=== PATIENT | male | born 1945 | race Caucasian/White ===

== ENCOUNTER 2016-11-19 08:35 | Outpatient (CLI) | payer MEDICARE, OTHER ==
[~2016-11-19] VITALS: Ht 177.8 cm; Wt 97.1 kg
[~2016-11-19 08:35] MED LIST: PANT20TA2 PO
--- OUTSIDE RECORDS SUMMARY | 2016-11-19 08:38 | XMS REPORT | Continuity of Care Document ---
Author Author [facility] Organization [facility] Address Unknown Phone Unavailable Allergies Active Description Code Type Severity Reaction Onset Reported/Identified Relationship to Patient Clinical Status Yes No Known Drug Allergies [id number] Drug Allergy Unknown N/ A 09/30/2014 Medications Problems Date Dx Coded Attending Type Code Diagnosis Diagnosed By 10/18/2014 DEBBIE GATES MD Ot 789.01 10/25/2014 DEBBIE GATES MD Ot 455.0 INT HEMORRHOID W/O COMPL 10/25/2014 DEBBIE GATES MD Ot 455.3 EXT HEMORRHOID W/O COMPL 10/25/2014 DEBBIE GATES MD Ot 530.11 REFLUX ESOPHAGITIS 10/25/2014 DEBBIE GATES MD Ot 535.50 UNSP GASTRITIS GASTRODUODENITIS W/O ME 10/25/2014 DEBBIE GATES MD Ot 553.3 DIAPHRAGMATIC HERNIA 10/25/2014 DEBBIE GATES MD Ot 562.10 DIVERTICULOSIS COLON (W/O MENT OF HEMORR 10/30/2014 DEBBIE GATES MD Ot 593.9 10/31/2014 DEBBIE GATES MD Ot 789.01 11/01/2014 DEBBIE GATES MD Ot 593.9 11/11/2014 DEBBIE GATES MD Ot 789.01 11/13/2014 DEBBIE GATES MD Ot 593.9 01/22/2015 DEBBIE GATES MD Ot V72.84 10/21/2016 DEBBIE GATES MD Ot 789.01 ABDOMINAL PAIN, RIGHT UPPER QUADRANT 10/21/2016 DEBBIE GATES MD Ot 789.01 ABDOMINAL PAIN, RIGHT UPPER QUADRANT 10/21/2016 DEBBIE GATES MD Ot 593.9 RENAL URETERAL DIS NOS 10/21/2016 DEBBIE GATES MD, Ot V72.84 EXAM PRE-OPERATIVE NOS 10/21/2016 DEBBIE GATES MD Ot 789.01 ABDOMINAL PAIN, RIGHT UPPER QUADRANT 10/21/2016 DEBBIE GATES MD Ot 789.01 ABDOMINAL PAIN, RIGHT UPPER QUADRANT 10/21/2016 DEBBIE GATES MD Ot 593.9 RENAL URETERAL DIS NOS 10/21/2016 DEBBIE GATES MD Ot V72.84 EXAM PRE-OPERATIVE NOS 10/21/2016 DEBBIE GATES MD Ot 789.01 ABDOMINAL PAIN, RIGHT UPPER QUADRANT 10/21/2016 DEBBIE GATES MD Ot 789.01 ABDOMINAL PAIN, RIGHT UPPER QUADRANT 10/21/2016 DEBBIE GATES MD Ot 593.9 RENAL URETERAL DIS NOS 10/21/2016 DEBBIE GATES MD Ot V72.84 EXAM PRE-OPERATIVE NOS Procedures Results Encounters ACCT No. Visit Date/Time Discharge Status Pt. Type Provider Facility Loc./Unit Complaint [id number] 10/25/2014 09:18:00 2014 13:00:00 DIS Outpatient DEBBIE GATES MD [facility] SDC ABDOMINAL PAIN [id number] 10/24/2014 15:30:00 2014 23:59:59 CLS Outpatient DEBBIE GATES MD [facility] PREOP ABDOMINAL PAIN [id number] 10/21/2014 10:15:00 2014 23:59:59 CLS Outpatient DEBBIE GATES MD [facility] RAD LEFT KIDNEY LESION [id number] 10/17/2014 08:56:00 2014 23:59:59 CLS Outpatient DEBBIE GATES MD [facility] RAD RUQ PAIN [id number] 09/30/2014 12:48:00 2013 23:59:59 CLS Outpatient DEBBIE GATES MD [facility] CARD RUQ PAIN
[2016-11-19 08:42] VITALS: BP 141/83
[2016-11-19] MEDS ORDERED: SITA1TAB2 PO (09:42)
[2016-11-19] MEDS ORDERED: INSU100I10 SQ (09:42)
[2016-11-19] MEDS ORDERED: ATEN50TA PO (09:42)
[2016-11-19] MEDS ORDERED: ASPI-586 PO (09:42)
[2016-11-19] MEDS ORDERED: ROSU5TAB PO (09:42)
[2016-11-19] MEDS ORDERED: METF500T4 PO (09:42)
[2016-11-19 09:43] LABS: BASOPHILS # (AUTO) 0.1 10^3/uL (0.0-0.1); BASOPHILS % (AUTO) 1 % (0-10); EOSINOPHILS # (AUTO) 0.3 10^3/uL (0.0-0.3); EOSINOPHILS % (AUTO) 3 % (0-10); LYMPHOCYTES # (AUTO) 1.4 X 10^3 (1.0-4.0); LYMPHOCYTES % (AUTO) 15 % (12-44); MEAN CORPUSCULAR HEMOGLOBIN 28 PG (25-34); MEAN CORPUSCULAR HGB CONC 33 G/DL (32-36); MEAN CORPUSCULAR VOLUME 86 FL (80-99); MONOCYTES # (AUTO) 0.9 X 10^3 (0.0-1.0); MONOCYTES % (AUTO) 9 % (0-12); NEUTROPHILS # (AUTO) 6.9 X 10^3 (1.8-7.8); NEUTROPHILS % (AUTO) 73 % (42-75); PLATELET COUNT 245 10^3/uL (130-400); RED BLOOD COUNT 5.21 10^6/uL (4.35-5.85); RED CELL DISTRIBUTION WIDTH 13.6 % (10.0-14.5); WHITE BLOOD COUNT 9.5 10^3/uL (4.3-11.0)
[2016-11-19 09:54] LABS: KETONES,URINE NEGATIVE (NEGATIVE); LEUKOCYTE ESTERASE ,URINE 3+ (NEGATIVE); NITRITE,URINE NEGATIVE (NEGATIVE); PH,URINE 5 (5-9); PROTEIN,URINE 1+ (NEGATIVE); UROBILINOGEN,URINE 1 MG/DL (NORMAL)
[2016-11-19 09:54] LABS: INR 0.9 (0.8-1.4); PROTHROMBIN TIME PATIENT 11.9 SEC (12.2-14.7)
[2016-11-19 10:02] LABS: ALANINE AMINOTRANSFERASE 20 U/L (0-55); ALBUMIN 4.2 G/DL (3.2-4.5); ANION GAP 13 MMOL/L (5-14); ASPARTATE AMINO TRANSFERASE 20 U/L (5-34); BILIRUBIN,TOTAL 0.3 MG/DL (0.1-1.0); BLOOD UREA NITROGEN 17 MG/DL (7-18); BUN/CREATININE RATIO 15; CALCIUM 9.4 MG/DL (8.5-10.1); CARBON DIOXIDE 22 MMOL/L (21-32); CHLORIDE 102 MMOL/L (98-107); CREATININE SERUM 1.12 MG/DL (0.60-1.30); GFR ESTIMATED > 60; GLUCOSE 161 MG/DL (70-105); POTASSIUM 4.7 MMOL/L (3.6-5.0); SODIUM 137 MMOL/L (135-145); TOTAL PROTEIN 6.7 G/DL (6.4-8.2)
[2016-11-19 10:09] LABS: BILIRUBIN,URINE 1+ (NEGATIVE); SQUAMOUS EPITHELIAL CELL,UR 0-2 /HPF
[2016-11-19 10:42] LABS: ERYTHROCYTE SEDIMENTATION RATE 4 MM/HR (0-30)
[2016-12-04] MEDS ORDERED: OXYC-197 PO (07:45)
== END 2016-11-19 09:25 | disposition home or self-care (01) ==
LOC: PREOP 08:35
PROVIDERS: ATTEND Orthopaedic Surgery
DX: Z01.812 Encounter for preprocedural laboratory examination (principal); Z11.2 Encounter for screening for other bacterial diseases; M17.12 Unilateral primary osteoarthritis, left knee; R53.83 Other fatigue; R82.99 Other abnormal findings in urine
CPT/HCPCS: 36415; 80053; 81000; 85025; 85610; 85652; 86850; 86900; 86901; 87081; 87088

== ENCOUNTER 2016-12-01 06:04 | Inpatient (IN) | payer MEDICARE, OTHER ==
--- NOTE | 2016-11-22 12:32 | HISTORY AND PHYSICAL ---
This will be for inpatient admission for left total knee arthroplasty. HISTORY: The patient is a 71-year-old with complaints of worsening left knee pain. Radiographs reveal complete loss of medial and patellofemoral joint spaces. He reports functional impairment because of the knee. He has tried bracing, Synvisc and anti-inflammatories without relief and due to functional impairment and failure to improve with conservative measures, the patient elected to proceed with surgical intervention. REVIEW OF SYSTEMS: No chest pain, no shortness of breath. No dysuria. PAST MEDICAL HISTORY: Diabetes type 2, PAST SURGICAL HISTORY: 1. Bilateral carpal tunnel. 2. Knee arthroscopy. FAMILY HISTORY: Significant for Alzheimer's. PRIMARY CARE PROVIDER: Dr. Butt. MEDICATIONS: 1. glimepiride 2. Lantus 3. Janumet 4. Ramipril 5. metformin 6. atenolol 7. Crestor 8. aspirin ALLERGIES: No known drug allergies. SOCIAL HISTORY: The patient denies alcohol and tobacco use PHYSICAL EXAMINATION: The patient's is well-developed, well-nourished, in no acute distress. HEENT: Normocephalic, atraumatic. Pupils are equal, round, and reactive to light. OROPHARYNX: Clear. NECK: Supple with no lymphadenopathy. LUNGS: Clear to auscultation bilaterally. HEART: Regular rate and rhythm. ABDOMEN: Soft, nontender, nondistended. EXTREMITY EXAM: The left knee demonstrates mild effusion. He ambulates with an antalgic gait. He has varus alignment noted. Range of motion 0/4/120. There is no varus valgus laxity. There is no erythema or warmth. IMPRESSION: Severe left knee osteoarthritis, unresponsive to conservative measures. PLAN: Left total knee arthroplasty. The risks, benefits, options, ramifications and recovery were discussed at length with the patient. He understands and wishes to proceed. Job ID: [id number] Dictated Date: 11/22/2016 12:15:53 Director Of Perioperative Services Date: 11/22/2016 12:26:58/sharri
[~2016-12-01] VITALS: Ht 177.8 cm; Wt 97.1 kg
[~2016-12-01 06:04] MED LIST changes: +ASPI-586 PO; +ATEN50TA PO; +INSU100I10 SQ; +METF500T4 PO; +ROSU5TAB PO; +SITA1TAB2 PO
--- OUTSIDE RECORDS SUMMARY | 2016-12-01 06:09 | XMS REPORT | Continuity of Care Document ---
Author Author [facility] Organization [facility] Address Unknown Phone Unavailable Care Team Providers Care Chief Deputy Clerk/Bailiff Name Role Phone DORCAS CARTY MD PCP Insurance Providers Payer Name Policy Number Subscriber Name Relationship [employer] [id number] Cb Stanley 18 Self / Same As Patient Enter Insurance Name [id number] Cb Stanley 18 Self / Same As Patient Advance Directives Directive Response Recorded Date/Time Advance Directives Yes 11/19/16 8:43am Health Care Power of Screen Printer Yes 11/19/16 8:43am Organ Donor No 11/19/16 8:43am Resuscitation Status Full Code 11/19/16 8:43am Problems No problem information available. Medications Current Home Medications Medication Dose Units Route Directions Days/Qty Instructions Start Date Insulin Glargine,Hum.rec.anlog 100 Unit/1 Ml 50 Unit Sub-Q Bedtime 11/19/16 Sitagliptin Phos/Metformin Hcl 1 Tab 1 Tab Oral Twice A Day 11/19/16 Metformin Hcl 500 Mg 500 Mg Oral Three Times A Day 11/19/16 Atenolol 50 Mg 75 Mg Oral Daily take 1 1/2 of 50mg tab for 75mg total 11/19/16 Rosuvastatin Calcium 5 Mg 5 Mg Oral Bedtime 11/19/16 Aspirin 81 Mg 81 Mg Oral Daily 11/19/16 Past Home Medications Medication Directions Ordered Status Pantoprazole Sodium 20 Mg Tablet.dr, 40 Mg Oral Daily 10/25/14 Discontinued Social History Social History Problem Response Recorded Date/Time Alcohol Use Denies Use 11/19/2016 8:43am Recreational Drug Use No 11/19/2016 8:43am Recent Foreign Travel No 11/19/2016 8:39am Recent Infectious Disease Exposure No 11/19/2016 8:39am Smoking Status Never a Smoker 11/19/2016 8:42am Recent Hopitalizations No 11/19/2016 8:43am Query Response Start Date Stop Date Smoking Status Never a Smoker Hospital Discharge Instructions No hospital discharge instructions. Plan of Care Discharge Date 11/19/16 9:25am Prescriptions See Medication Section Functional Status No functional status results. Allergies, Adverse Reactions, Alerts No known allergies. Immunizations No immunization records. Vital Signs Acute Vital Signs Vital Response Date/Time Pulse Rate (adult) 105 bpm (60 - 90) 11/19/2016 8:42am O2 Sat by Pulse Oximetry 98 % (88 - 100) 11/19/2016 8:42am Blood Pressure 141/83 mm Hg 11/19/2016 8:42am Blood Pressure Mean 102 mm Hg 11/19/2016 8:42am Pain Numeric Pain Scale 8 11/19/2016 8:42am Height (Feet) 5 feet 11/19/2016 8:40am Height (Inches) 10.00 inches 11/19/2016 8:40am Height (Calculated Centimeters) 177.003802 cm 11/19/2016 8:40am Weight (Pounds) 214 pounds 11/19/2016 8:40am Weight (Ounces) 0.0 oz 11/19/2016 8:40am Weight (Calculated Grams) 27080.77 gm 11/19/2016 8:40am Weight (Calculated Kilograms) 97.686316 kilograms 11/19/2016 8:40am Calculated BMI 30.7 11/19/2016 8:40am Results Laboratory Results Test Name Result Units Flags Reference Collection Date/Time Result Date/ Time Comments White Blood Count 9.5 10^3/uL 4.3-11.0 11/19/2016 9:10am 11/19/2016 9: 48am Red Blood Count 5.21 10^6/uL 4.35-5.85 11/19/2016 9:10am 11/19/2016 9: 48am Hemoglobin 14.8 G/DL 13.3-17.7 11/19/2016 9:11/19/2016 9:48am Hematocrit 45 % 40-54 11/19/2016 9:11/19/2016 9:48am Mean Corpuscular Volume 86 FL 80-99 11/19/2016 9:11/19/2016 9: 48am Mean Corpuscular Hemoglobin 28 PG 25-34 11/19/2016 9:11/19/2016 9: 48am Mean Corpuscular Hemoglobin Concent 33 G/DL 32-36 11/19/2016 9: 9:48am Red Cell Distribution Width 13.6 % 10.0-14.5 11/19/2016 9:2016 9:48am Platelet Count 245 10^3/uL 130-400 11/19/2016 9:11/19/2016 9:48am Mean Platelet Volume 11.0 FL H 7.4-10.4 11/19/2016 9:11/19/2016 9: 48am Neutrophils (%) (Auto) 73 % 42-75 11/19/2016 9:11/19/2016 9:48am Lymphocytes (%) (Auto) 15 % 12-44 11/19/2016 9:11/19/2016 9:48am Monocytes (%) (Auto) 9 % 0-12 11/19/2016 9:11/19/2016 9:48am Eosinophils (%) (Auto) 3 % 0-10 11/19/2016 9:11/19/2016 9:48am Basophils (%) (Auto) 1 % 0-10 11/19/2016 9:11/19/2016 9:48am Neutrophils # (Auto) 6.9 X 10^3 1.8-7.8 11/19/2016 9:11/19/2016 9: 48am Lymphocytes # (Auto) 1.4 X 10^3 1.0-4.0 11/19/2016 9:11/19/2016 9: 48am Monocytes # (Auto) 0.9 X 10^3 0.0-1.0 11/19/2016 9:11/19/2016 9: 48am Eosinophils # (Auto) 0.3 10^3/uL 0.0-0.3 11/19/2016 9:10am 11/19/2016 9 :48am Basophils # (Auto) 0.1 10^3/uL 0.0-0.1 11/19/2016 9:10am 11/19/2016 9: 48am Erythrocyte Sedimentation Rate 4 MM/HR 0-30 11/19/2016 9:10am 2016 10:42am Prothrombin Time 11.9 SEC L 12.2-14.7 11/19/2016 9:10am 11/19/2016 9: 55am INR Comment 0.9 0.8-1.4 11/19/2016 9:10am 11/19/2016 9:55am INTERPRETIVE DATA SUGGESTED THERAPEUTIC RANGE FOR INR'S: VENOUS THROMBOSIS, PULMONARY EMBOLISM, OR PREVENTION OF SYSTEMIC EMBOLISM (EG. IN ATRIAL FIBRILLATION): 2.0 - 3.0 MECHANICAL PROSTHETIC HEART VALVES: 2.5 - 3.5* *NOTE: INR'S UP TO 4.5 MAY BE NECESSARY IN SELECTED GROUPS OF HIGH RISK PATIENTS. [employer] CONSENSUS CONFERENCE ON ANTITHROMBOTIC THERAPY (2000). Urine Color YELLOW 11/19/2016 9:1511/19/2016 10:10am Urine Clarity CLEAR 11/19/2016 9:1511/19/2016 10:10am Urine pH 5 5-9 11/19/2016 9:1511/19/2016 10:10am Urine Specific [place] 1.020 1.016-1.022 11/19/2016 9:152016 10:10am Urine Protein 1+ * NEGATIVE 11/19/2016 9:1511/19/2016 10:10am Urine Glucose (UA) NEGATIVE NEGATIVE 11/19/2016 9:1511/19/2016 10: 10am Urine RBC (Auto) NEGATIVE NEGATIVE 11/19/2016 9:1511/19/2016 10: 10am Urine Ketones NEGATIVE NEGATIVE 11/19/2016 9:1511/19/2016 10:10am Urine Nitrite NEGATIVE NEGATIVE 11/19/2016 9:1511/19/2016 10:10am Urine Bilirubin 1+ * NEGATIVE 11/19/2016 9:1511/19/2016 10:10am CONFIRMATORY ICTOTEST NEGATIVE Urine Urobilinogen 1 MG/DL NORMAL 11/19/2016 9:1511/19/2016 10:10am Urine Leukocyte Esterase 3+ * NEGATIVE 11/19/2016 9:15am 11/19/2016 10: 10am Urine RBC NONE /HPF 11/19/2016 9:15am 11/19/2016 10:10am Urine WBC 5-10 /HPF * 11/19/2016 9:15am 11/19/2016 10:10am Urine Bacteria FEW /HPF * 11/19/2016 9:15am 11/19/2016 10:10am Urine Squamous Epithelial Cells 0-2 /HPF 11/19/2016 9:15am 2016 10:10am Urine Crystals NONE /LPF 11/19/2016 9:15am 11/19/2016 10:10am Urine Casts PRESENT /LPF 11/19/2016 9:15am 11/19/2016 10:10am Urine Hyaline Casts 10-25 /LPF * 11/19/2016 9:15am 11/19/2016 10:10am Urine Mucus SMALL /LPF * 11/19/2016 9:15am 11/19/2016 10:10am Urine Culture Indicated YES 11/19/2016 9:15am 11/19/2016 10:10am Sodium Level 137 MMOL/L 135-145 11/19/2016 9:10am 11/19/2016 10:04am Potassium Level 4.7 MMOL/L 3.6-5.0 11/19/2016 9:10am 11/19/2016 10: 04am Chloride Level 102 MMOL/L 98-107 11/19/2016 9:10am 11/19/2016 10:04am Carbon Dioxide Level 22 MMOL/L 21-32 11/19/2016 9:10am 11/19/2016 10: 04am Anion Gap 13 MMOL/L 5-14 11/19/2016 9:10am 11/19/2016 10:04am Blood Urea Nitrogen 17 MG/DL 7-18 11/19/2016 9:10am 11/19/2016 10:04am Creatinine 1.12 MG/DL 0.60-1.30 11/19/2016 9:10am 11/19/2016 10:04am BUN/Creatinine Ratio 15 11/19/2016 9:10am 11/19/2016 10:04am Estimat Glomerular Filtration Rate > 60 11/19/2016 9:10am 2016 10:04am GFR INTERPRETIVE DATA UNITS FOR ESTIMATED GFR (eGFR): mL/min/1.73 M2 REFERENCE RANGE FOR ESTIMATED GFR (eGFR) eGFR NORMAL eGFR >60 MODERATELY DECREASED eGFR 30-59 SEVERLY DECREASED eGFR 15-29 KIDNEY FAILURE <15 (OR DIALYSIS) Glucose Level 161 MG/DL H 70-105 11/19/2016 9:10a11/19/2016 10:04am Calcium Level 9.4 MG/DL 8.5-10.1 11/19/2016 9:10a11/19/2016 10:04am Total Bilirubin 0.3 MG/DL 0.1-1.0 11/19/2016 9:10a11/19/2016 10:04am Alkaline Phosphatase 56 U/L 40-136 11/19/2016 9:10a11/19/2016 10: 04am Aspartate Amino Transf (AST/SGOT) 20 U/L 5-34 11/19/2016 9:10a2016 10:04am Alanine Aminotransferase (ALT/SGPT) 20 U/L 0-55 11/19/2016 9:10a11/19 10:04am Total Protein 6.7 G/DL 6.4-8.2 11/19/2016 9:10a11/19/2016 10:04am Albumin 4.2 G/DL 3.2-4.5 11/19/2016 9:10a11/19/2016 10:04am Procedures No known history of procedures. Encounters Encounter Location Arrival/Admit Date Discharge/Depart Date Attending Provider Departed Clinic [facility] 11/19/16 8:35am 11/19/16 9: 25am ONEIDA CASEY MD
[2016-12-01] MEDS: LACTATED RINGERS 1,000 ML IV PRN ×2 (06:30→07:10)
[2016-12-01] MEDS ORDERED: CEFUROXIME 1.5 GM (ZINACEF) VIAL ONE (06:38)
[2016-12-01] MEDS ORDERED: NS (IVPB) 50 ML ONE (06:38)
[2016-12-01 06:52] LABS: RED BLOOD COUNT 5.37 10^6/uL (4.35-5.85); RED CELL DISTRIBUTION WIDTH 13.6 % (10.0-14.5); WHITE BLOOD COUNT 10.9 10^3/uL (4.3-11.0)
[2016-12-01] MEDS ORDERED: PROPOFOL INJECTION 50 ML IV ONE (06:58)
[2016-12-01] MEDS ORDERED: morphine PF (DURAMORPH) 10 MG/10 ML AMP ONE (06:58)
[2016-12-01 07:01] VITALS: BP 142/89
[2016-12-01] MEDS ORDERED: CEFUROXIME 1.5 GM/NS 50 ML IVPB IV ONE ×2 (07:15)
--- NOTE | 2016-12-01 07:19 | Progress Note-Pre Operative ---
Pre-Operative Progress Note H&P Reviewed The H&P was reviewed, patient examined and no changes noted. Date H&P Reviewed: Dec 01, 2016 Time H&P Reviewed: 07:11 Pre-Operative Diagnosis: left knee primary osteoarthritis ONEIDA CASEY MD Dec 01, 2016 07:19
--- NOTE | 2016-12-01 07:20 | Progress Note-Post Operative ---
Post-Operative Progess Note Product Manufacturing Professional Miguel Angel Small Pre-Operative Diagnosis left knee primary osteoarthritis Post-Operative Diagnosis left knee primary osteoarthritis Post-Op Procedure Note Date of Procedure: Dec 01, 2016 Name of Procedure: left total knee arthroplasty Anesthesia Type spinal Estimated blood loss (mL): minimal Packing: none Specimen(s) collected none ONEIDA CASEY MD Dec 01, 2016 07:20
[2016-12-01] MEDS ORDERED: ACETAMINOPHEN 325 MG TABLET/CAPLET (TYLENOL) PO PRN (07:30)
[2016-12-01] MEDS ORDERED: ONDANSETRON 4 MG/2 ML (SDV) Z0FRAN IVP PRN (07:30)
[2016-12-01] MEDS ORDERED: morphine PCA 30 MG/30 ML VIAL IV PRN (07:30)
[2016-12-01] MEDS ORDERED: INTRA-ARTICULAR INJ ONE ×5 (07:30)
[2016-12-01] MEDS ORDERED: diphenhydrAMINE 50 MG/ML INJ (BENADRYL) IVP PRN (07:30)
[2016-12-01] MEDS ORDERED: morphine INJ 10 MG/ML 1ML (SYR OR VIAL) ONE (08:59)
[2016-12-01] MEDS ORDERED: SENNA W/DOCUSATE (SENOKOT S) TABLET PO SCH (09:00)
[2016-12-01] MEDS ORDERED: proPOfol 200 MG/20 ML (DIPRIVAN) VIAL IV ONE (09:22)
[2016-12-01] MEDS ORDERED: LACTATED RINGERS 3,000 ML IV ONE (09:23)
[2016-12-01] MEDS ORDERED: ONDANSETRON 4 MG/2 ML (SDV) Z0FRAN IV PRN ×2 (09:45)
[2016-12-01] MEDS ORDERED: morphine INJ 10 MG/ML 1ML (SYR OR VIAL) IV PRN (09:45)
[2016-12-01] MEDS ORDERED: NALOXONE 0.4 MG/ML 1 ML (NARCAN) VIAL IV PRN (09:45)
[2016-12-01] MEDS ORDERED: morphine PF (DURAMORPH) 10 MG/10 ML AMP INJ ONE (09:45)
--- NOTE | 2016-12-01 10:04 | Diagnostic Imaging Report ---
2 views of the left knee. Indication: post total knee arthroplasty Findings: There is femoral and tibial prosthesis with patellar resurfacing and prosthesis seen. Anterior soft tissue post-operative changes are noted with anterior skin rene seen. Impression: Baseline post left total knee arthroplasty in good alignment. Dictated by: Dictated on workstation # [id number]
--- NOTE | 2016-12-01 10:35 | Progress Note-Standard ---
Standard Progress Note Progress Notes/Assess & Plan Progress/Assessment & Plan No complaints Radiographs--Hw well positioned. No fractures LLE--2plus DP pulse with brisk cap refill spinal in effect s/p L TKA mobilize as able ONEIDA CASEY MD Dec 01, 2016 10:35
[2016-12-01] MEDS: NS IV 1000 ML 1,000 ML IV SCH ×2 (11:06→15:09)
[2016-12-01 12:00] VITALS: BP 151/91
--- NOTE | 2016-12-01 12:41 | OPERATIVE REPORT ---
PROCEDURE PHYSICIAN: ONEIDA CASEY DATE OF PROCEDURE: 12/01/2016 PREOPERATIVE DIAGNOSIS: Left knee primary osteoarthritis. POSTOPERATIVE DIAGNOSIS: Left knee primary osteoarthritis. PROCEDURE: Left total knee arthroplasty. SURGEON: Digna EVENT PLANNER: Miguel Angel Small who assisted throughout the procedure and closed the incision. ANESTHESIA: General endotracheal by riley Quarles CRNA. TOURNIQUET TIME: Approximately 70 minutes at 300 mmHg. ESTIMATED BLOOD LOSS: Minimal. DRAINS: None. COMPLICATIONS: None. MATERIALS: Microport cemented size 5 femur, cemented size 5 tibia with 10 mm insert and a cemented size 32 patella button. The patient was then transported to the recovery room, awake, in stable condition. POSTOPERATIVE PLAN: Routine protocol. STATEMENT OF MEDICAL NECESSITY: The patient is a 71-year-old gentleman with progressively worsening left knee pain. Radiographs revealed severe tricompartmental osteoarthritis. He had undergone treatment with multiple injections, but reported progressive functional impairment and due to worsening symptoms and failure to improve with conservative measures, the patient elected to proceed with surgical intervention. PROCEDURE: After risks and benefits of procedure were discussed and questions were answered an informed consent was signed and placed on chart. The operative site was confirmed in the preoperative holding image by the surgeon. The patient was then transported to the operating room where after adequate levels of general endotracheal anesthetic were seen obtained, a timeout was called confirming the operative site. The left lower extremity was prepped and draped usual sterile fashion. With the leg elevated and the knee flexed, the tourniquet was inflated to 300 mmHg. A standard anterior approach was utilized. Hemostasis was obtained with cautery. A medial parapatellar arthrotomy was performed leaving a 1 cm cuff on the patella for later reattachment. A portion of fat pad was resected. The ACL was resected. The intramedullary guide was passed into the femur and the distal cutting block was placed. The distal cut was made and the femur was sized to a size 5. The 5 cutting block was placed parallel to the epicondylar axis and cuts were made from posterior to anterior. A subperiosteal release was then carefully performed on the posterior distal femur with a curved osteotome, being careful to stay on the bony surface. Attention was then turned to the tibia. The intramedullary guide was passed and the cutting block was placed. The drop gregorio transected the intermalleolar axis and the cut was made. The tibial base plate was positioned and prepared with a drill and Keel punch. The femoral trial was placed with a 10 mm insert and the trochlear cut was made. The patella was prepared using the free hand technique by resecting 10 mm off the undersurface. The peg guide was placed and peg holes were drilled. The trials were inserted. Full extension was easily obtained, 120 degrees of flexion with gravity was easily obtained. The patella tracked well. There was no anterior/posterior or medial/lateral laxity in flexion or extension. The trials were removed. The joint was copiously irrigated with pulse lavage. Periarticular block was placed in the posterior capsule, medial and lateral retinaculum and extensor mechanism. The joint was further irrigated with pulse lavage. Bone ends were irrigated and dried and the tibial prosthesis was cemented into position. Excessive cement was removed. The superior surface was irrigated and dried and the polyethylene insert was placed. The distal femur was irrigated and dried and the femoral prosthesis was cemented into position and excessive cement was removed. The knee was brought out in full extension until cement had cured. The undersurface of patella was irrigated and dried and the patellar button was cemented in position, again removing excessive cement. Once the cement had cured the knee was taken through a range of motion. Full extension was easily obtained. 120 degrees of flexion with gravity was easily obtained. The patella tracked well. There was no anterior/posterior or medial/lateral laxity in flexion or extension. The joint was further irrigated with pulse lavage. The arthrotomy was closed with number 2 [place] in [id number] interrupted fashion. The knee was flexed with no undue tension noted at the repair site. The subcutaneous tissues were irrigated using a total of 6 liters throughout the procedure. 0 Vicryl was used for deep subcutaneous tissue. 2-0 Vicryl for the superficial subcutaneous tissues. [place] used on the skin. A soft dressing was applied. The tourniquet was then deflated. The patient was then transported to the recovery room, awake, in stable condition. Job ID: [id number] Dictated Date: 12/01/2016 09:25:25 Equipment Detailer Date: 12/01/2016 12:33:52 / [email or web address]
[2016-12-01] MEDS ORDERED: ATEN25TA PO (13:00)
[2016-12-01] MEDS ORDERED: ATEN50TA PO (13:00)
[2016-12-01] MEDS ORDERED: INSU100V6 SQ (13:03)
[2016-12-01] MEDS: oxyCODONE/APAP 5/325MG (PERCOCET 5) TABLET PO PRN ×4 (13:50→23:51)
--- NOTE | 2016-12-01 14:22 | Physical Therapy Evaluation ---
PT Evaluation-General Medical Diagnosis Admission Date Dec 01, 2016 at 06:04 Medical Diagnosis: left TKA Onset Date: Dec 01, 2016 Therapy Diagnosis Therapy Diagnosis: impaired mobility, strength, endurance, ROM Height/Weight Height (Feet): 5 Height (Inches): 10.00 Weight (Pounds): 214 Weight (Ounces): 0.0 Precautions Precautions/Isolations: Standard Precautions Weight Bear Status Weight Bearing Restriction: Weight Bearing/Tolerated Location Restriction: L LE Referral Physician: Miguel Angel Small Reason for Referral: Evaluation/Treatment Medical History Pertinent Medical History: DM Additional Medical History surg (bilateral carpal tunnel, knee arthroscopy) Current History elective surgery Reviewed History: Yes Prior/Core FIM Prior Level of Function Functional [place] Measure 0=Not Assessed/NA 4=Minimal Assistance 1=Total Assistance 5=Supervision or Setup 2=Maximal Assistance 6=Modified [place] 3=Moderate Assistance 7=Complete [place] Bed Mobility: 7 Transfers (B,C,W/C) (FIM): 7 Gait: 7 PT Evaluation-Current Subjective Patient in bed pre tx, agrees to PT. Patient is anxious about pain but states he has none at rest and is fairly numb. He has 5/10 pain after tx. Nurse gave him pain meds. Pt/Family Goals Patient in bed post tx with nurse call, phone, jacque, SCD's, CPM, [facility], all needs met. Objective Patient Orientation: Normal For Age Attachments: IV ROM/Strength ROM Lower Extremities left knee flexion 90 degrees extension +5 degrees Strenght Lower Extremities NT due to recent surgery Integumentary/Posture Bowel Incontinence: No Bladder Incontinence: No Neuromuscular (Tone, Coordination, Reflexes) decreased coordination due to spinal Sensory Vision: Functional Hearing: Functional Sensation Right Lower Extremit: Impaired Sensation Left Lower Extremity: Impaired Sensation Lower Extremities Patient states he is still pretty numb from spinal. Transfers Functional [place] Measure 0=Not Assessed/NA 4=Minimal Assistance 1=Total Assistance 5=Supervision or Setup 2=Maximal Assistance 6=Modified [place] 3=Moderate Assistance 7=Complete [place] Transfers (B, C, W/C) (FIM): 4 Scootin Rollin Supine to/from Sit: 5 Sit to/from Stand: 4 cues for safety and hand placement, cues to slow down Gait Mode of Locomotion: Walk Anticipated Mode of Locomotion: Walk Gait (FIM): 1 Distance: 30' Gait Level of Assist: 4 Gait Persons Needed: 1 Gait Assistive Device: FWW Comments/Gait Description slow, no LOB, poor heel strike, flexed left knee Balance Sitting Static: Normal Sitting Dynamic: Normal Standing Static: Fair Standing Dynamic: Fair Treatment left knee protocol x 10 Assessment/Needs Patient has impaired functional mobility, strength, endurance, ROM Rehab Potential: Good PT Mcfp Goals Latin American Studies Professor Goals PT Latin American Studies Professor Goals Time Frame: Dec 08, 2016 Transfers (B,C,W/C) (FIM): 5 Gait (FIM): 5 Distance: 150' Gait Level of Assist: 5 Gait Assistive Device: FWW PT Plan Problem List Problem List: Activity Tolerance, Functional Strength, Safety, Balance, Gait, Transfer, Bed Mobility, ROM Treatment/Plan Treatment Plan: Continue Plan of Care Treatment Plan: Bed Mobility, Education, Functional Activity [place], Functional Strength, Gait, Safety, Therapeutic Exercise, Transfers Treatment Duration: Dec 08, 2016 # of days/week 5-6 Visits Per Week: 10-11 Minutes/Day (M-F): 15-30 Minutes/Day (Sat/Hughes): 15-30 Pt/Family Agrees w/Plan: Yes Safety Risks/Education Patient Education: Gait Training, Transfer Techniques, Correct Positioning, Disease Process, Safety Issues Teaching Recipient: Patient Teaching Methods: Demonstration, Discussion Response to Teaching: Reinforcement Needed Discharge Recommendations Plan Patient will perform bed mobility and transfer training, balance and endurance training, functional strengthening, stair training, gait training, ROM/ stretching, education, to improve functional mobility and independence at home. Therapy D/C Recommendations: Home w/ Family Support Time/GCodes Time In: 1340 Time Out: 1405 Total Billed Treatment Time: 25 Total Billed Treatment 1 visit EVL 10' GT 15 min TYRONE SCHAEFER PT Dec 01, 2016 14:22
[2016-12-01] MEDS ORDERED: PATIENT MAY USE OWN MEDS, ALL MC SCH (14:30)
[2016-12-01] MEDS: CEFUROXIME INJECTION 750 MG in NS (IVPB) 50 ML IV SCH ×2 (15:08→23:33)
[2016-12-01 16:00] VITALS: BP 149/79
[2016-12-01 20:00] VITALS: BP 138/61
[2016-12-01] MEDS: ATENOLOL 25 MG (TENORMIN) TAB PO SCH (21:46)
[2016-12-01] MEDS: DOCUSATE SODIUM 100 MG (COLACE) CAP PO SCH (21:46)
[2016-12-01] MEDS: sitaGLIPtin 50 MG (JANUVIA) TAB PO SCH (21:46)
[2016-12-01] MEDS: metFORMIN 500 MG (GLUCOPHAGE) TAB PO SCH (21:46)
[2016-12-01] MEDS: INSULIN GLARGINE SQ SCH (21:47)
[2016-12-02 00:35] VITALS: BP 123/58
[2016-12-02] MEDS: oxyCODONE/APAP 5/325MG (PERCOCET 5) TABLET PO PRN ×8 (03:18→20:17)
[2016-12-02 04:15] VITALS: BP 110/57
[2016-12-02] MEDS: NS IV 1000 ML 1,000 ML IV SCH ×2 (04:32→20:47)
[2016-12-02] MEDS: morphine INJ 10 MG/ML 1ML (SYR OR VIAL) IV PRN ×3 (04:41→17:21)
[2016-12-02] MEDS: MULTIVIT W/MINERALS TAB (THERAGRAN M) PO SCH (06:23)
[2016-12-02] MEDS: ENOXAPARIN 30 MG/0.3 ML (LOVENOX) SYR SC SCH ×2 (07:38→20:11)
[2016-12-02] MEDS: DOCUSATE SODIUM 100 MG (COLACE) CAP PO SCH ×2 (07:38→20:10)
[2016-12-02] MEDS: ASPIRIN E.C. 81 MG (ECOTRIN) TAB PO SCH (07:39)
[2016-12-02] MEDS: ATENOLOL 50 MG (TENORMIN) TAB PO SCH (07:39)
--- NOTE | 2016-12-02 07:41 | Progress Note-Standard ---
Standard Progress Note Progress Notes/Assess & Plan Progress/Assessment & Plan No complaints Radiographs--Hw well positioned. No fractures LLE--2plus DP pulse with brisk cap refill spinal in effect s/p L TKA mobilize as able Final Diagnosis No complaints Vital Signs Date Time Temp Pulse Resp B/P Pulse Ox O2 Delivery O2 Flow Rate FiO2 12/02/16 04:15 99.0 96 20 110/57 96 Room Air 12/02/16 00:35 98.2 90 20 123/58 97 12/01/16 20:00 98.7 97 18 138/61 97 Room Air 12/01/16 16:00 98.5 79 18 149/79 97 Room Air 12/01/16 12:00 96.7 72 20 151/91 98 Room Air I & O 12/02/16 07:00 Intake Total 3730 ml Output Total 750 ml Balance 2980 ml Laboratory Tests Test 12/01/16 21:45 12/02/16 05:02 12/02/16 05:16 Range/Units Glucometer 277 H 91 70-110 MG/DL Hematocrit 38 L 40-54 % Hemoglobin 12.3 L 13.3-17.7 G/DL LLE--dressing in place. No calf tenderness. flexion to 90. good quad control s/p LTKA doing well mobilize ONEIDA CASEY MD Dec 02, 2016 07:41
[2016-12-02 07:48] VITALS: BP 144/76
[2016-12-02] MEDS: sitaGLIPtin 50 MG (JANUVIA) TAB PO SCH ×2 (09:23→20:13)
[2016-12-02] MEDS: metFORMIN 500 MG (GLUCOPHAGE) TAB PO SCH ×2 (09:23→20:10)
--- NOTE | 2016-12-02 09:51 | Physical Therapy Daily Note ---
PT Daily Note-Current Subjective Patient is in bed and agrees to PT. Pain Numeric Pain Scale: 7 Location: Left Location Body Site: Knee Pain Description: Acute Mental Status Patient Orientation: Normal For Age Attachments: Polar Pack, IV Transfers Functional [place] Measure 0=Not Assessed/NA 4=Minimal Assistance 1=Total Assistance 5=Supervision or Setup 2=Maximal Assistance 6=Modified [place] 3=Moderate Assistance 7=Complete IndependenceIRFPAI Quality Coding Scale 6 Independent with activity with or without an assistive device 5 Patient requires set up or clean up by helper. Patient completes activity by themselves 4 Supervision or touching assist (CGA). [place] provide cues , steadying assist 3 The helper provides less than half the effort to complete the activity 2 The helper provides more than half the effort to complete the activity 1 Dependent. The helper does all the effort to complete an activity 7 Patient refused to complete or attempt activity 9 The patient did not perform the activity before the current illness or injury 88 Not attempted due to Medical conditions or safety concerns Transfers (B, C, W/C) (FIM): 5 Scootin Rollin Supine to/from Sit: 5 Sit to/from Stand: 5 Weight Bearing Weight Bearing Restriction: Weight Bearing/Tolerated Location Restriction: L LE Gait Training Gait (FIM): 5 Distance (FIM): 3=150 ft Distance: 150' Gait Level of Assist: 5 Gait Assistive Device: FWW slow, antalgic Exercises Supine Ex: Ankle pumps, Quad Set, Heel Slides, Straight leg raise Supine Reps: 15 Seated Therapy Exercises: Long arc quads Seated Reps: 15 Assessment Patient is progressing with treatment and is highly motivated. PT to increase activity as tolerated by patient. PT Mcfp Goals Mcfp Goals PT Body Design Checker Goals Time Frame: Dec 08, 2016 Transfers (B,C,W/C) (FIM): 5 Gait (FIM): 5 Distance: 150' Gait Level of Assist: 5 Gait Assistive Device: FWW PT Plan Treatment/Plan Treatment Plan: Continue Plan of Care Treatment Plan: Bed Mobility, Education, Functional Activity Adalgisa, Functional Strength, Gait, Safety, Therapeutic Exercise, Transfers Treatment Duration: Dec 08, 2016 Visits Per Week: 10-11 Minutes/Day (M-F): 15-30 Minutes/Day (Sat/Hughes): 15-30 Time/GCodes Time In: 830 Time Out: 900 Total Billed Treatment Time: 30 Total Billed Treatment 1 visit EX 15 min GT 15 min EB ENGLISH PT Dec 02, 2016 09:51
[2016-12-02 11:00] VITALS: BP 161/85
--- NOTE | 2016-12-02 11:57 | Occupational Therapy Eval ---
OT Evaluation-General/PLF Medical Diagnosis Admission Date Dec 01, 2016 at 06:04 Medical Diagnosis: left TKA Onset Date: Dec 01, 2016 Therapy Diagnosis Therapy Diagnosis: decreased self care Height/Weight Height (Feet): 5 Height (Inches): 10.00 Weight (Pounds): 214 Weight (Ounces): 0.0 Precautions Precautions/Isolations: Standard Precautions Safety Interventions: None Weight Bear Status Weight Bearing Restriction: Weight Bearing/Tolerated Location Restriction: L LE Referral Physician: Miguel Angel Small Medical History Pertinent Medical History: DM Additional Medical History bilateral carpal tunnel, knee arthroscopy Current History pt s/p elective left TKA Reviewed History: Yes Social History Home: Single Level Entry Into Home: Stairs Without Railing ADL-Prior Level of Function ADL PLOF Comments Pt reports being completely independent prior to surgery. 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 Pt reports 9/10 pain in left LE, states he is current on pain medication. Pt states he did not sleep well last night. Mental Status/Objective Patient Orientation: Normal For Age Current Glasses/Contacts: Yes Upper Extremity Strength Grossly functional ADL-Treatment ADL-Current Pt sit to stand with SBA and cues to push up from bed. Gait to restroom with FWW , assist for IV pole. Pt stood to urinate without assistance. Return to EOB with SBA. Pt is already dressed this morning, states he was able to don shirt and shorts without assistance. Pt states spouse will assist him at home as needed and he has other family nearby. Pt states he has a FWW and has no other equipment needs. Pt declined further OT needs at this time. Pt in bed with needs met and spouse present after session. Functional [place] Measure 0=Not Assessed/NA 4=Minimal Assistance 1=Total Assistance 5=Supervision or Setup 2=Maximal Assistance 6=Modified [place] 3=Moderate Assistance 7=Complete IndependenceIRFPAI Quality Coding Scale 6 Independent with activity with or without an assistive device 5 Patient requires set up or clean up by helper. Patient completes activity by themselves 4 Supervision or touching assist (CGA). [place] provide cues , steadying assist 3 The helper provides less than half the effort to complete the activity 2 The helper provides more than half the effort to complete the activity 1 Dependent. The helper does all the effort to complete an activity 7 Patient refused to complete or attempt activity 9 The patient did not perform the activity before the current illness or injury 88 Not attempted due to Medical conditions or safety concerns Toileting (FIM): 5 Transfers (B, C, W/C) (FIM): 5 Education OT Patient Education: Rehab process Teaching Recipient: Patient Teaching Methods: Discussion Response to Teaching: Verbalize Understanding OT Education/Plan Problem List/Assessment Assessment: No Skilled OT Needs ID'd Pt s/p elective left TKA. Pt is transferring SBA with FWW, assist to manage IV pole. Pt states he dressed himself. Pt states spouse will be able to assist at home as needed. Pt has no questions or concerns at this time and declined further OT visits during hospitalization. Will d/c OT at this time. Discharge Recommendations Plan/Recommendations: Discontinue OT Treatment Plan/Plan of Care Treatment Duration: Dec 02, 2016 (evaluation only) Rehab Potential: Good Time/GCodes Start Time: 11:00 Stop Time: 11:17 Total Time Billed (hr/min): 17 Billed Treatment Time 1 visit, AVINASH(17minutes) MANAS JUARES OT Dec 02, 2016 11:57
--- NOTE | 2016-12-02 14:23 | Physical Therapy Daily Note ---
PT Daily Note-Current Subjective Patient agrees to PT. Patient c/o 8/10 left knee. Pain Numeric Pain Scale: 8 Location: Left Location Body Site: Knee Pain Description: Acute Mental Status Patient Orientation: Normal For Age Attachments: IV Transfers Functional [place] Measure 0=Not Assessed/NA 4=Minimal Assistance 1=Total Assistance 5=Supervision or Setup 2=Maximal Assistance 6=Modified [place] 3=Moderate Assistance 7=Complete IndependenceIRFPAI Quality Coding Scale 6 Independent with activity with or without an assistive device 5 Patient requires set up or clean up by helper. Patient completes activity by themselves 4 Supervision or touching assist (CGA). [place] provide cues , steadying assist 3 The helper provides less than half the effort to complete the activity 2 The helper provides more than half the effort to complete the activity 1 Dependent. The helper does all the effort to complete an activity 7 Patient refused to complete or attempt activity 9 The patient did not perform the activity before the current illness or injury 88 Not attempted due to Medical conditions or safety concerns Transfers (B, C, W/C) (FIM): 5 Scootin Rollin Supine to/from Sit: 5 Sit to/from Stand: 5 Weight Bearing Weight Bearing Restriction: Weight Bearing/Tolerated Location Restriction: L LE Gait Training Gait (FIM): 5 Distance (FIM): 3=150 ft Distance: 150' Gait Level of Assist: 5 Gait Assistive Device: FWW antalgic/slow/steady Exercises Supine Ex: Ankle pumps, Quad Set, Heel Slides, Short Arc Quads, Straight leg raise Supine Reps: 10 (AAROM left LE) Treatments CPM 0-60 degrees with polar pack in place Assessment Patient tolerated treatment well and is in bed with CPM in place. Patient does have increase left knee pain during and after treatment. RN notified and will issue morphine. PT Architectural Inspector Goals Long-Term Goals PT Architectural Inspector Goals Time Frame: Dec 08, 2016 Transfers (B,C,W/C) (FIM): 5 Gait (FIM): 5 Distance: 150' Gait Level of Assist: 5 Gait Assistive Device: FWW PT Plan Treatment/Plan Treatment Plan: Continue Plan of Care Treatment Plan: Bed Mobility, Education, Functional Activity Adalgisa, Functional Strength, Gait, Safety, Therapeutic Exercise, Transfers Treatment Duration: Dec 08, 2016 Visits Per Week: 10-11 Minutes/Day (M-F): 15-30 Minutes/Day (Sat/Hughes): 15-30 Time/GCodes Time In: 1325 Time Out: 1355 Total Billed Treatment Time: 30 Total Billed Treatment 1 visit EX 15 min GT 15 min EB ENGLISH PT Dec 02, 2016 14:23
[2016-12-02] MEDS: ALPRAZolam 1 MG (XANAX) TAB PO PRN ×2 (14:42→21:14)
--- NOTE | 2016-12-02 14:47 | Anesthesia-Regional Post-Op ---
Regional Patient Condition Mental Status: Alert, Oriented x3 Circulation: Same as Pre-Op Headache: Absent Sensation: Full Recovery Motor Block: Absent Post Op Complications Complications None Follow Up Care/Instructions Patient Instructions None needed. Anesthesia/Patient Condition Patient is doing well, no complaints, stable vital signs, no apparent adverse anesthesia problems. DASHA TESFAYE DO Dec 02, 2016 14:47
[2016-12-02] MEDS ORDERED: CATHETER FLUSH 10 ML SYR IV PRN (15:00)
[2016-12-02 16:00] VITALS: BP 150/94
[2016-12-02 20:08] VITALS: BP 135/77
[2016-12-02] MEDS: ATENOLOL 25 MG (TENORMIN) TAB PO SCH (20:10)
[2016-12-02] MEDS: INSULIN GLARGINE SQ SCH (21:15)
[2016-12-03 00:50] VITALS: BP 140/72
[2016-12-03] MEDS: oxyCODONE/APAP 5/325MG (PERCOCET 5) TABLET PO PRN ×6 (05:52→20:22)
[2016-12-03] MEDS: MULTIVIT W/MINERALS TAB (THERAGRAN M) PO SCH (05:52)
--- NOTE | 2016-12-03 07:16 | Progress Note-Standard ---
Standard Progress Note Progress Notes/Assess & Plan Progress/Assessment & Plan No complaints Radiographs--Hw well positioned. No fractures LLE--2plus DP pulse with brisk cap refill spinal in effect s/p L TKA mobilize as able Final Diagnosis No complaints Vital Signs Date Time Temp Pulse Resp B/P Pulse Ox O2 Delivery O2 Flow Rate FiO2 12/03/16 00:50 98.8 109 20 140/72 99 Room Air 12/02/16 20:08 98.6 89 18 135/77 98 Room Air 12/02/16 16:00 98.8 119 18 150/94 97 Room Air 12/02/16 11:00 97.3 92 18 161/85 100 Room Air 12/02/16 07:48 96.8 105 20 144/76 92 Room Air I & O 12/03/16 07:00 Intake Total 1790 ml Output Total 1600 ml Balance 190 ml Laboratory Tests Test 12/02/16 10:28 12/02/16 16:12 12/02/16 20:59 12/03/16 05:37 Range/Units Glucometer 126 H 148 H 168 H 185 H 70-110 MG/DL Test 12/03/16 06:30 Range/Units Hematocrit 37 L 40-54 % Hemoglobin 12.0 L 13.3-17.7 G/DL LLE--incision clean and dry. small fracture blisters noted. No calf tenderness. Neg Corinna's s/p LTKA continue PT/OT likely DC tomorrow ONEIDA CASEY MD Dec 03, 2016 07:16
[2016-12-03] MEDS: metFORMIN 500 MG (GLUCOPHAGE) TAB PO SCH ×2 (08:30→18:43)
[2016-12-03] MEDS: sitaGLIPtin 50 MG (JANUVIA) TAB PO SCH ×2 (08:30→18:43)
[2016-12-03] MEDS: ATENOLOL 50 MG (TENORMIN) TAB PO SCH (08:30)
[2016-12-03] MEDS: ASPIRIN E.C. 81 MG (ECOTRIN) TAB PO SCH (08:31)
[2016-12-03] MEDS: DOCUSATE SODIUM 100 MG (COLACE) CAP PO SCH ×2 (08:31→20:10)
[2016-12-03] MEDS: ENOXAPARIN 30 MG/0.3 ML (LOVENOX) SYR SC SCH ×2 (08:31→20:10)
[2016-12-03 08:59] VITALS: BP 117/69
--- NOTE | 2016-12-03 11:09 | Physical Therapy Daily Note ---
PT Daily Note-Current Subjective Pt agreeable to PT, but expresses that he feels therapy pushes him too hard. Reports he feels he needs more time to get better. Pain Numeric Pain Scale: 6 Location: Left Location Body Site: Knee Pain Description: Ache Mental Status Patient Orientation: Person, Place, Time, Situation Transfers Functional [place] Measure 0=Not Assessed/NA 4=Minimal Assistance 1=Total Assistance 5=Supervision or Setup 2=Maximal Assistance 6=Modified [place] 3=Moderate Assistance 7=Complete IndependenceIRFPAI Quality Coding Scale 6 Independent with activity with or without an assistive device 5 Patient requires set up or clean up by helper. Patient completes activity by themselves 4 Supervision or touching assist (CGA). [place] provide cues , steadying assist 3 The helper provides less than half the effort to complete the activity 2 The helper provides more than half the effort to complete the activity 1 Dependent. The helper does all the effort to complete an activity 7 Patient refused to complete or attempt activity 9 The patient did not perform the activity before the current illness or injury 88 Not attempted due to Medical conditions or safety concerns Transfers (B, C, W/C) (FIM): 4 Pt is sBA with sit to stand transfer with skilled cues for sequencing and safety and to not "plop" when sitting. Pt able to get into bed with min assist for the left LE. Weight Bearing Weight Bearing Restriction: Weight Bearing/Tolerated Location Restriction: L LE Gait Training Gait (FIM): 5 Gait Assistive Device: FWW Gait training with skilled cues on sequencing and heel toe pattern. Pt ambulated 250 ft x 2 with fWW. Tends to keep knee slightly flexed with decreased heel strike and toe off--this did improve withcueing and throughout the course of therapy. Training on 4 steps with use of handrail and fWW with education on sequencing. Required verbal cues and CGA. UP/down a curb step with min assist and cues for sequencing. Treatments Gait training and stair training. CPM applied 0-58 degrees--all he could tolerate. Educated pt on importance of aggressive therapy and progression. AROM 0-67 degrees and PROM to 72 degrees. Educated in seated heel slide to promote flexion. Assessment Current Status: Fair Progress Gait pattern did improve with treatment. Some difficutly with the curb step but managed stairs fairly well. Gait is slow and deliberate. Pt progressing but at a slowed rate. Feel he will make functional gains with continued aggressive therapy services. PT Helicopter Repairer Goals Helicopter Repairer Goals PT Mcfp Goals Time Frame: Dec 08, 2016 Transfers (B,C,W/C) (FIM): 5 Gait (FIM): 5 (met ) Distance: 150' Gait Level of Assist: 5 Gait Assistive Device: FWW PT Plan Problem List Problem List: Activity Tolerance, Functional Strength, Safety, Gait, Transfer Treatment/Plan Treatment Plan: Continue Plan of Care Treatment Plan: Bed Mobility, Education, Functional Activity Adalgisa, Functional Strength, Gait, Safety, Therapeutic Exercise, Transfers Treatment Duration: Dec 08, 2016 Visits Per Week: 10-11 Minutes/Day (M-F): 15-30 Minutes/Day (Sat/Hughes): 15-30 Safety Risks/Education Patient Education: Gait Training, Transfer Techniques, Steps Teaching Recipient: Patient Teaching Methods: Demonstration, Discussion Response to Teaching: Verbalize Understanding, Return Demonstration Time/GCodes Time In: 940 Time Out: 1034 Total Billed Treatment Time: 54 Total Billed Treatment visit FA 54 IVAN PALOMO PT Dec 03, 2016 11:09
--- NOTE | 2016-12-03 14:27 | Physical Therapy Daily Note ---
PT Daily Note-Current Subjective Patient in bed sleeping, agrees to PT upon waking. States his pain is at 8/10. Appearance Patient in bed post tx with nurse call, phone, shaunna santillan, SCD's on. Patient states his CPM has been on for a couple of hours so it was not put on at this time, instructed patient to have it put back on after dinner. Mental Status Patient Orientation: Normal For Age Transfers Functional [place] Measure 0=Not Assessed/NA 4=Minimal Assistance 1=Total Assistance 5=Supervision or Setup 2=Maximal Assistance 6=Modified [place] 3=Moderate Assistance 7=Complete IndependenceIRFPAI Quality Coding Scale 6 Independent with activity with or without an assistive device 5 Patient requires set up or clean up by helper. Patient completes activity by themselves 4 Supervision or touching assist (CGA). [place] provide cues , steadying assist 3 The helper provides less than half the effort to complete the activity 2 The helper provides more than half the effort to complete the activity 1 Dependent. The helper does all the effort to complete an activity 7 Patient refused to complete or attempt activity 9 The patient did not perform the activity before the current illness or injury 88 Not attempted due to Medical conditions or safety concerns Transfers (B, C, W/C) (FIM): 3 Scootin Rollin Supine to/from Sit: 3 Sit to/from Stand: 5 Patient needed assist with upper body and left leg getting out of bed, cues for safety and hand placement Gait Training Gait (FIM): 5 Distance: 200' Gait Level of Assist: 5 Gait Persons Needed: 1 Gait Assistive Device: FWW antalgic, slow, flexed left knee, poor heel strike, poor step through Exercises Supine Ex: Ankle pumps, Quad Set, Heel Slides, Short Arc Quads, Straight leg raise Supine Reps: 10 Treatments bed mobility and transfer training, functional strengthening, gait training Assessment Current Status: Fair Progress improving endurance, however his ROM is a little tight, he was about +2 degrees extension and 60 flexion PT Functional Manager Goals Nursing Home Goals PT Nursing Home Goals Time Frame: Dec 08, 2016 Transfers (B,C,W/C) (FIM): 5 Gait (FIM): 5 (met ) Distance: 150' Gait Level of Assist: 5 Gait Assistive Device: FWW PT Plan Problem List Problem List: Activity Tolerance, Functional Strength, Safety, Balance, Gait, Transfer, Bed Mobility, ROM Treatment/Plan Treatment Plan: Continue Plan of Care Treatment Plan: Bed Mobility, Education, Functional Activity Adalgisa, Functional Strength, Gait, Safety, Therapeutic Exercise, Transfers Treatment Duration: Dec 08, 2016 Visits Per Week: 10-11 Minutes/Day (M-F): 15-30 Minutes/Day (Sat/Hughes): 15-30 Safety Risks/Education Patient Education: Gait Training, Transfer Techniques, Safety Issues Teaching Recipient: Patient Teaching Methods: Demonstration, Discussion Response to Teaching: Reinforcement Needed Time/GCodes Time In: 1350 Time Out: 1415 Total Billed Treatment Time: 25 Total Billed Treatment 1 visit EX 10 min GT 15 min TYRONE SCHAEFER PT Dec 03, 2016 14:27
[2016-12-03 15:40] VITALS: BP 148/73
[2016-12-03] MEDS: ATENOLOL 25 MG (TENORMIN) TAB PO SCH (20:10)
[2016-12-03] MEDS: INSULIN GLARGINE SQ SCH (20:11)
[2016-12-03] MEDS: ALPRAZolam 1 MG (XANAX) TAB PO PRN (20:22)
[2016-12-04] VITALS: BP 133/77
[2016-12-04] MEDS: oxyCODONE/APAP 5/325MG (PERCOCET 5) TABLET PO PRN ×2 (01:17→08:41)
[2016-12-04] MEDS: MULTIVIT W/MINERALS TAB (THERAGRAN M) PO SCH (06:41)
[2016-12-04 07:40] VITALS: BP 123/59
[2016-12-04] MEDS ORDERED: OXYC-197 PO (07:45)
--- NOTE | 2016-12-04 07:47 | Progress Note-Standard ---
Standard Progress Note Progress Notes/Assess & Plan Progress/Assessment & Plan No complaints Radiographs--Hw well positioned. No fractures LLE--2plus DP pulse with brisk cap refill spinal in effect s/p L TKA mobilize as able Final Diagnosis NO complaints Vital Signs Date Time Temp Pulse Resp B/P Pulse Ox O2 Delivery O2 Flow Rate FiO2 12/04/16 00:00 97.9 100 19 133/77 97 Room Air 12/03/16 15:40 96.9 104 21 148/73 97 Room Air 12/03/16 08:59 97.7 111 18 117/69 98 Room Air I & O 12/04/16 07:00 Intake Total 1120 ml Output Total 1175 ml Balance -55 ml Laboratory Tests Test 12/03/16 11:21 12/03/16 15:43 12/03/16 20:38 12/04/16 05:20 Range/Units Glucometer 225 H 161 H 182 H 70-110 MG/DL Hematocrit 36 L 40-54 % Hemoglobin 12.0 L 13.3-17.7 G/DL Test 12/04/16 06:33 Range/Units Glucometer 176 H 70-110 MG/DL LLE--incision benign. small fracture blisters. Neg Corinna's. NO calf tenderness. Pos SLR with min assistance s/p LTKA doing well DC after PT today ONEIDA CASEY MD Dec 04, 2016 07:47
[2016-12-04] MEDS: ENOXAPARIN 30 MG/0.3 ML (LOVENOX) SYR SC SCH (08:27)
[2016-12-04] MEDS: sitaGLIPtin 50 MG (JANUVIA) TAB PO SCH (08:28)
[2016-12-04] MEDS: DOCUSATE SODIUM 100 MG (COLACE) CAP PO SCH (08:28)
[2016-12-04] MEDS: ASPIRIN E.C. 81 MG (ECOTRIN) TAB PO SCH (08:28)
[2016-12-04] MEDS: ATENOLOL 50 MG (TENORMIN) TAB PO SCH (08:28)
[2016-12-04] MEDS: metFORMIN 500 MG (GLUCOPHAGE) TAB PO SCH (08:28)
--- NOTE | 2016-12-04 11:18 | Physical Therapy Daily Note ---
PT Daily Note-Current Subjective Pt up in chair and ready to go home. Pt rates pain 7/10 in (L) LE. Pt verbalizes understanding of up/down stairs, importance of wearing TO hose and performing HEP 2-3x daily. Transfers Functional [place] Measure 0=Not Assessed/NA 4=Minimal Assistance 1=Total Assistance 5=Supervision or Setup 2=Maximal Assistance 6=Modified [place] 3=Moderate Assistance 7=Complete IndependenceIRFPAI Quality Coding Scale 6 Independent with activity with or without an assistive device 5 Patient requires set up or clean up by helper. Patient completes activity by themselves 4 Supervision or touching assist (CGA). [place] provide cues , steadying assist 3 The helper provides less than half the effort to complete the activity 2 The helper provides more than half the effort to complete the activity 1 Dependent. The helper does all the effort to complete an activity 7 Patient refused to complete or attempt activity 9 The patient did not perform the activity before the current illness or injury 88 Not attempted due to Medical conditions or safety concerns Gait Training Gait Assistive Device: FWW Pt amb 125ft with FWW, CGA. Pt presents with slight knee flexion during ambulation (L) LE. Exercises Supine Ex: LE Protocol Treatments Reviewed HEP. Discussed proper technique for stairs, transfers stand to sit and walking heel toe. Pt vebalized understanding. Pt (L)LEpresents with post surgical swelling, skin tight. Blisters that may have popped as fluid drip on the front of the leg. Assessment Current Status: Good Progress Functional mobility mod I. Pt ready for discharge. Pt and spouse verbalized understanding of HEP. PT Tmh Teacher Goals Tmh Teacher Goals PT Jail Goals Time Frame: Dec 08, 2016 Transfers (B,C,W/C) (FIM): 5 Gait (FIM): 5 (met ) Distance: 150' Gait Level of Assist: 5 Gait Assistive Device: FWW PT Plan Treatment/Plan Treatment Plan: Continue Plan of Care, Discontinue PT Treatment Plan: Bed Mobility, Education, Functional Activity Adalgisa, Functional Strength, Gait, Safety, Therapeutic Exercise, Transfers Treatment Duration: Dec 08, 2016 Visits Per Week: 10-11 Minutes/Day (M-F): 15-30 Minutes/Day (Sat/Hughes): 15-30 Time/GCodes Time In: 1030 Time Out: 1100 Total Billed Treatment Time: 30 Total Billed Treatment 1, gait 25 min АЛЕКСАНДР GARCIA CPTA Dec 04, 2016 11:18
[2016-12-04 11:30] VITALS: BP 123/59
--- NOTE | 2016-12-04 23:20 | DISCHARGE SUMMARY ---
DATE OF ADMISSION: 12/01/2016 DATE OF DISCHARGE: 12/04/2016 DIAGNOSES: 1. Left knee primary osteoarthritis. 2. Diabetes mellitus. PROCEDURE: Left total knee arthroplasty. SUMMARY: The patient is a 71-year-old gentleman who underwent a left total knee arthroplasty the day of admission. Postoperatively, he did very well. At time of discharge, his wound was clean and dry. He had no calf tenderness, negative Homans sign. His hematocrit was 36. He had attained independent status with physical therapy. He could perform a straight leg raise with minimal assistance. He was tolerating his diet well and tolerating pain with oral pain medication. CONDITION AT DISCHARGE: Good. DISCHARGE DIET: Regular. FOLLOW-UP: In 3 weeks. Home physical therapy has been arranged. DISCHARGE MEDICATIONS: 1. Home medications. 2. Aspirin. 3. Percocet. Job ID: [id number] Dictated Date: 12/04/2016 07:44:00 Rubber Molder Date: 12/04/2016 23:17:01/sharri
== END 2016-12-04 11:30 | disposition home health service (06) | DRG 470 ==
LOC: 4TH 06:04 → SURG 06:05 → 4TH 11:15
PROVIDERS: ADMIT Orthopaedic Surgery; ATTEND Orthopaedic Surgery
PROC: 0SRD0J9 Replacement of Left Knee Joint with Synthetic Substitute, Cemented, Open Approach (ICD-10-PCS; principal; 2016-12-01 07:24)
DX: M17.12 Unilateral primary osteoarthritis, left knee (principal); E11.9 Type 2 diabetes mellitus without complications; Z79.84 Long term (current) use of oral hypoglycemic drugs
CPT/HCPCS: 36415; 73560; 82962; 85014; 85018; 85027; 94664

== ENCOUNTER 2017-08-24 07:25 | Outpatient (CLI) | payer MEDICARE, OTHER ==
[~2017-08-24] VITALS: Ht 177.8 cm; Wt 90.7 kg
[~2017-08-24 07:25] MED LIST changes: +ATEN25TA PO; +INSU100V6 SQ; +OXYC-197 PO
[2017-08-24] MEDS ORDERED: GLMP2T PO (07:40)
[2017-08-24 07:42] VITALS: BP 129/83
[2017-08-24 08:13] LABS: BASOPHILS # (AUTO) 0.1 10^3/uL (0.0-0.1); BASOPHILS % (AUTO) 0 % (0-10); EOSINOPHILS # (AUTO) 0.2 10^3/uL (0.0-0.3); EOSINOPHILS % (AUTO) 2 % (0-10); LYMPHOCYTES # (AUTO) 1.6 X 10^3 (1.0-4.0); LYMPHOCYTES % (AUTO) 14 % (12-44); MEAN CORPUSCULAR HEMOGLOBIN 29 PG (25-34); MEAN CORPUSCULAR HGB CONC 34 G/DL (32-36); MEAN CORPUSCULAR VOLUME 85 FL (80-99); MEAN PLATELET VOLUME 10.9 FL (7.4-10.4); MONOCYTES % (AUTO) 9 % (0-12); NEUTROPHILS # (AUTO) 8.5 X 10^3 (1.8-7.8); NEUTROPHILS % (AUTO) 75 % (42-75); PLATELET COUNT 278 10^3/uL (130-400); RED BLOOD COUNT 5.21 10^6/uL (4.35-5.85); RED CELL DISTRIBUTION WIDTH 12.8 % (10.0-14.5); WHITE BLOOD COUNT 11.2 10^3/uL (4.3-11.0)
[2017-08-24 08:15] LABS: BILIRUBIN,URINE NEGATIVE (NEGATIVE); KETONES,URINE NEGATIVE (NEGATIVE); LEUKOCYTE ESTERASE ,URINE 3+ (NEGATIVE); NITRITE,URINE NEGATIVE (NEGATIVE); PH,URINE 5 (5-9); PROTEIN,URINE NEGATIVE (NEGATIVE); UROBILINOGEN,URINE NORMAL (NORMAL)
[2017-08-24 08:24] LABS: INR 0.9 (0.8-1.4); PROTHROMBIN TIME PATIENT 12.2 SEC (12.2-14.7)
[2017-08-24 08:32] LABS: ANION GAP 9 MMOL/L (5-14); BLOOD UREA NITROGEN 14 MG/DL (7-18); BUN/CREATININE RATIO 16; CARBON DIOXIDE 22 MMOL/L (21-32); CHLORIDE 105 MMOL/L (98-107); CREATININE SERUM 0.86 MG/DL (0.60-1.30); GFR ESTIMATED > 60; GLUCOSE 175 MG/DL (70-105); POTASSIUM 4.6 MMOL/L (3.6-5.0); SODIUM 136 MMOL/L (135-145)
[2017-08-24 08:38] LABS: ERYTHROCYTE SEDIMENTATION RATE 3 MM/HR (0-30)
[2017-08-24 08:39] LABS: SQUAMOUS EPITHELIAL CELL,UR RARE /HPF
== END 2017-08-24 15:00 ==
LOC: PREOP 07:25
PROVIDERS: ATTEND Orthopaedic Surgery
DX: Z01.812 Encounter for preprocedural laboratory examination (principal); M17.11 Unilateral primary osteoarthritis, right knee; R53.83 Other fatigue
CPT/HCPCS: 36415; 80048; 81000; 85025; 85610; 85652; 86850; 86900; 86901; 87081; 87088

== ENCOUNTER 2017-08-31 06:08 | Inpatient (IN) | payer MEDICARE, OTHER ==
--- NOTE | 2017-08-22 11:45 | HISTORY AND PHYSICAL ---
DATE OF SERVICE: Admission History and Physical LAST-FOUR SOC[employer] SECURITY: 6495. This will be for inpatient admission on 08/31/2017 for right total knee arthroplasty. HISTORY OF PRESENT ILLNESS: The patient is a 71-year-old active gentleman with complaints of progressively worsening right knee pain. Radiographs reveal complete loss of medial and patellofemoral joint spaces. He reports functional impairment because the knee. He has tried bracing Synvisc and anti-inflammatories without relief. Due to functional impairment the patient would like to proceed with surgical intervention. REVIEW OF SYSTEMS: No chest pain, no shortness of breath. No dysuria. PAST MEDICAL HISTORY: Diabetes mellitus type 2. PAST SURGICAL HISTORY: Bilateral carpal tunnel, knee arthroscopy and left total knee arthroplasty. FAMILY HISTORY: Significant for Alzheimer dementia. Primary care provider: Dr. Butt. MEDICATIONS: Glimepiride, Lantus, Janumet, ramipril, metformin, atenolol, Crestor and aspirin. ALLERGIES: No known drug allergies. SOCIAL HISTORY: The patient denies alcohol and tobacco use. PHYSICAL EXAMINATION: GENERAL: The patient is well developed, well-nourished in no acute distress. HEENT: Normocephalic, atraumatic. Pupils are equal, round and reactive to light. Oropharynx is clear. NECK: Supple, with no lymphadenopathy. LUNGS: Clear to auscultation bilaterally. HEART: Regular rate and rhythm. ABDOMEN: Soft, nontender, nondistended. EXTREMITIES: The right knee demonstrates no skin lesions. He has a slight effusion. Range of motion is 0/3/120. No varus or valgus laxity. Negative anterior and posterior drawer. There is varus alignment noted. The patient ambulates with an antalgic gait. IMPRESSION: Severe right knee osteoarthritis unresponsive to conservative measures. PLAN: Right total knee arthroplasty. The risks, benefits, options, ramifications and recovery have been discussed at length with the patient. He understands and wishes to proceed. Job ID: [id number] DocumentID: [id number] Dictated Date: 08/22/2017 11:25:35 Orthopaedic Surgeon Date: 08/22/2017 11:44:32 Dictated By: ONEIDA CASEY MD
[~2017-08-31] VITALS: Ht 177.8 cm; Wt 90.7 kg
[~2017-08-31 06:08] MED LIST changes: +GLMP2T PO
[2017-08-31] MEDS ORDERED: CEFUROXIME 1.5 GM (ZINACEF) VIAL ONE (06:35)
[2017-08-31] MEDS ORDERED: NS (IVPB) 50 ML ONE ×2 (06:35→22:57)
[2017-08-31] MEDS: LACTATED RINGERS 1,000 ML IV PRN ×2 (06:57→08:49)
[2017-08-31] MEDS ORDERED: PROPOFOL INJECTION 50 ML IV ONE (07:00)
[2017-08-31] MEDS ORDERED: morphine PF (DURAMORPH) 10 MG/10 ML AMP ONE (07:01)
[2017-08-31 07:03] VITALS: BP 131/76
--- NOTE | 2017-08-31 07:29 | Progress Note-Pre Operative ---
Pre-Operative Progress Note H&P Reviewed The H&P was reviewed, patient examined and no changes noted. Date Seen by Provider: Aug 31, 2017 Time Seen by Provider: 07:20 Date H&P Reviewed: Aug 31, 2017 Time H&P Reviewed: 07:11 Pre-Operative Diagnosis: right knee primary osteoarthritis ONEIDA CASEY MD Aug 31, 2017 07:29
[2017-08-31] MEDS ORDERED: CEFUROXIME 1.5 GM/NS 50 ML IVPB IV ONE ×2 (07:30)
[2017-08-31] MEDS ORDERED: ACETAMINOPHEN 325 MG TABLET/CAPLET (TYLENOL) PO PRN (07:30)
[2017-08-31] MEDS ORDERED: diphenhydrAMINE 50 MG/ML INJ (BENADRYL) IVP PRN (07:30)
[2017-08-31] MEDS ORDERED: ONDANSETRON 4 MG/2 ML (SDV) Z0FRAN IVP PRN (07:30)
[2017-08-31] MEDS ORDERED: INTRA-ARTICULAR IU ONE ×5 (07:30)
--- NOTE | 2017-08-31 07:31 | Progress Note-Post Operative ---
Post-Operative Progess Note Surgeon (s)/Marketing Writer (s) Surgeon ONEIDA CASEY MD Marketing Writer: Miguel Angel Small Pre-Operative Diagnosis right knee primary osteoarthritis Post-Operative Diagnosis right knee primary osteoarthritis Procedure & Operative Findings Date of Procedure 08/31/17 Procedure Performed/Findings right total knee arthroplasty Anesthesia Type GETA Estimated Blood Loss Estimated blood loss (mL): minimal Specimens/Packing Specimens Removed none Packing: none ONEIDA CASEY MD Aug 31, 2017 07:31
[2017-08-31] MEDS ORDERED: morphine INJ 10 MG/ML 1ML (SYR OR VIAL) ONE (08:50)
[2017-08-31] MEDS ORDERED: NALOXONE 0.4 MG/ML 1 ML (NARCAN) VIAL IV PRN (09:30)
[2017-08-31] MEDS ORDERED: morphine PF (DURAMORPH) 10 MG/10 ML AMP INJ ONE (09:30)
[2017-08-31] MEDS ORDERED: ONDANSETRON 4 MG/2 ML (SDV) Z0FRAN IV PRN (09:30)
--- NOTE | 2017-08-31 10:01 | Diagnostic Imaging Report ---
INDICATION: Postop knee replacement. TECHNIQUE: AP and lateral views of the right knee were obtained. FINDINGS: A right knee prosthesis appears in good alignment. There are surgical rene anteriorly. There is no unexpected foreign body postsurgery. IMPRESSION: Good alignment of the right knee prosthesis with no unexpected foreign body postsurgery. Dictated by: Dictated on workstation # [id number]
--- NOTE | 2017-08-31 10:25 | Progress Note-Standard ---
Standard Progress Note Progress Notes/Assess & Plan Date Seen by Provider: Aug 31, 2017 Time Seen by Provider: 09:50 Progress/Assessment & Plan post op check Patient comfortable radiographs--HW well positioned without fracture RLE--block in effect. brisk cap refill with 1 plus DP pulse s/p rtka mobilize as able when spinal effects absent ONEIDA CASEY MD Aug 31, 2017 10:25
[2017-08-31] MEDS ORDERED: OXYC-471 PO (11:09)
--- NOTE | 2017-08-31 11:12 | D/C HH Face to Face Order ---
D/C Face to Face Orders Instructions for Patient Patient Instructions/FollowUp: three weeks Physician to follow Patient: in three weeks Discharge Diet for Home: ADA Diet Patient Data-Allergies,Ht & Wt Patient Allergies: Coded Allergies: No Known Drug Allergies (Unverified , 08/24/17) Height (Feet): 5 Height (Inches): 10.00 Weight (Pounds): 200 Weight (Ounces): 0.0 Home Health Need/Face to Face Date of Face to Face: Aug 31, 2017 Clinical Findings: Generalized weakness and fatigue, Instability, Pain with ambulation, Unsteady gait I have seen Pt [id number]: Yes Discharged To: Home Diagnosis/Conditions: right total knee arthroplasty Problems/Diagnosis/Condition: Patient is Homebound due to: Muscle weakness, Pain w/ambulation Homebound Status Due to the above stated illness, injury or surgical procedure (medical condition or diagnosis) and associated clinical findings, the patient is homebound because of his/her inability to leave home except with aid of a supportive device and/or person AND leaving the home requires a considerable and taxing effort or is medically contraindicated. Pt req the following assistanc: Walker Home Health Nursing Orders Home Health Services Order: Physical Therapy-Evaluate & Treat Home Health Infusion Therapy Line Start Date: Aug 31, 2017 Line Start Time: 0630 Therapy Orders Therapy Orders: Physical Therapy Therapy Specific Orders: Eval assistive deivces, Teach enviro modifications/ safety, Gait training, Increase strength/endurance, Restore ROM Certify Stmt I certify that this patient is under my care and that I, a nurse practitioner or a physician; a special event assistant working with me, had a face to face encounter that - meets the physician face to face encounter requirements with this patient as dated. ONEIDA CASEY MD Aug 31, 2017 11:12
[2017-08-31 12:00] VITALS: BP 126/86
[2017-08-31] MEDS: morphine PCA 30 MG/30 ML VIAL IV PRN (12:26)
--- NOTE | 2017-08-31 13:08 | OPERATIVE REPORT ---
DATE OF SERVICE: 08/31/2017 PREOPERATIVE DIAGNOSIS: Right knee primary osteoarthritis. POSTOPERATIVE DIAGNOSIS: Right knee primary osteoarthritis. PROCEDURE: Right total knee arthroplasty. SURGEON: Isaias Sawyer MD HUNTING GUIDE: SIMÓN Evans, who assisted throughout the procedure and closed the incisions. ANESTHESIA: Spinal by Oseas Quarles CRNA. TOURNIQUET TIME: Approximately 65 minutes at 200 mmHg. ESTIMATED BLOOD LOSS: Minimal. DRAINS: None. COMPLICATIONS: None. MATERIALS: MicroPort, cemented size 5 femur, cemented size 5 tibia with 12 mm insert and cemented size 32 patella. The patient was transported to the recovery room awake and in stable condition. POSTOPERATIVE PLAN: Routine protocol. STATEMENT OF MEDICAL NECESSITY: The patient is a 71-year-old gentleman with longstanding progressive right knee pain. Radiographs revealed severe tricompartmental osteoarthritis. He had undergone treatment with injections, anti-inflammatories, rest and activity modifications without relief. Due to functional impairment and failure to improve with conservative measures, the patient elected to proceed with surgical intervention. DESCRIPTION OF PROCEDURE: After risks and benefits of procedure were discussed and questions were answered, informed consent was signed and placed on the chart. The operative site was confirmed in the preoperative holding area and initialed by the surgeon. The patient was then transported to the operating room and after adequate levels of regional anesthetic were obtained, a timeout was called confirming the operative site. The right lower extremity was prepped and draped in the usual sterile fashion with the leg elevated and the knee flexed, tourniquet was inflated to 300 mmHg. Standard anterior approach was utilized. Hemostasis was obtained with cautery. Medial parapatellar arthrotomy was performed leaving a 1 cm cuff on the patella for later reattachment. A portion of the fat pad was resected and a subperiosteal release was performed on the proximal medial tibia with curved osteotome. The ACL was resected. The intramedullary guide was passed into the femur and the distal cutting block was placed. Distal cut was made. The femur sized to a size 5. The 5 cutting block was placed parallel to the epicondylar axis and cuts were made from posterior to anterior. A subperiosteal release was then carefully performed on the posterior distal femur, being careful to stay on the bony surface. The intramedullary guide was then passed into the tibia. The cutting block was placed. The drop gregorio transected the intermalleolar axis and the cut was made. The five baseplate was placed and again the drop gregorio transected the intermalleolar axis. This was prepared with a drill and keel punch. The femoral trial was placed in the lugholes and a trochlear cut was made. The patella was then prepared by resecting 10 mm off the undersurface. The peg guide was placed and the peg holes were drilled. The trials were inserted with 12 mm insert, 32 mm button. The patellar tracked well. Full extension was easily obtained. Greater than 120 degrees of flexion with gravity was easily obtained. There was a trace valgus laxity in full extension, but no varus laxity, negative anterior and posterior drawer, and no anterior/posterior laxity in extension or mid flexion. The trials were removed. The joint was irrigated with pulse lavage. Periarticular block was placed in the posterior capsule, medial and lateral retinaculum extensor mechanism and subcutaneous tissues. The joint was further irrigated. The bone ends were irrigated and dried. The tibial baseplate was cemented into position. Excess cement was removed. The superior surface was irrigated and dried and the polyethylene insert was placed. The femur was irrigated and dried and the femoral prosthesis was cemented into position. Excess cement was removed. The knee was brought out into full extension until the cement had cured. The undersurface of the patella was irrigated and dried and the patellar button was cemented into position. Once the cement had cured, the knee was taken through range of motion. The patella tracked well. Full extension was easily obtained, 120 degrees of flexion with gravity was easily obtained. There was no anterior/posterior laxity in flexion or extension, trace valgus laxity in full extension, no varus laxity. The joint was further irrigated with pulse lavage. A total of 6 liters were used throughout the procedure. The arthrotomy was closed #2 Tevdek in [id number]-gg-sblof interrupted fashion. The knee was flexed. Patella tracked well with no undue tension at the repair site. Subcutaneous tissues were irrigated and dried. An 0 Vicryl was used for deep subcutaneous tissue, 2-0 Vicryl for superficial subcutaneous tissue, rene used on the skin. A soft dressing was applied. The tourniquet was deflated. The patient was transported to the recovery room awake and in stable condition. Job ID: [id number] DocumentID: [id number] Dictated Date: 08/31/2017 09:27:59 Sales Operations Director Date: 08/31/2017 13:07:55 Dictated By: ISAIAS SAWYER MD
[2017-08-31] MEDS: NS IV 1000 ML 1,000 ML IV SCH ×2 (13:19→19:57)
--- NOTE | 2017-08-31 13:20 | Consultation-Hospitalist ---
HPI History of Present Illness: HPI/Chief Complaint CC: Medical management following right total knee replacement POD # 0 HPI: This is a 71yoWM clinic patient of Dr Butt w/h/o DM, AF and HTN who presents to room 420 after an uncomplicated right total knee replacement. Currently he is w/o pain and the spinal block is wearing off and denies any CP or SOB. I am awaiting home med reconciliation in order to restart home meds. Accuchecks will be monitored. 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) Alcohol Use: Denies Use Recreational Drug Use: No Smoking Status: Never a Smoker Physical Abuse Screen: No Sexual Abuse: No Recent Foreign Travel: No Contact w/other who traveled: No Recent Hopitalizations: No Recent Infectious Disease Expo: No Immunizations Up To Date Date of Pneumonia Vaccine: Oct 03, 2014 Date of Influenza Vaccine: Jul 11, 2017 Seasonal Allergies Seasonal Allergies: No Surgeries Yes (BILAT CTR, LEFT TKR, RT KNEE SCOPE) Orthopedic Respiratory No Cardiovascular Yes (A-FIB) Atrial Fibrillation Neurological No Reproductive System Hx Reproductive Disorders: No Sexually Transmitted Disease: No HIV/AIDS: No Genitourinary No Gastrointestinal No Musculoskeletal Yes (RT KNEE OSTEOARTHRITIS) Arthritis Endocrine History of Endocrine Disorders: Yes Endocrine Disorders: Diabetes, Non-Insulin dep HEENT History of HEENT Disorders: Yes (GLASSES) Loss of Vision: Bilateral Hearing Impairment: Denies Cancer No Psychosocial History of Psychiatric Problem: No Integumentary History of Skin or Integumenta: No Blood Transfusions History of Blood Disorders: No Adverse Reaction to a Blood Tr: No Family Medical History Family Hx: Alzheimer's disease 19 MOTHER Diabetes mellitus 19 MOTHER Review of Systems Constitutional: see HPI EENTM: no symptoms reported Respiratory: no symptoms reported Cardiovascular: no symptoms reported Gastrointestinal: no symptoms reported Genitourinary: no symptoms reported Musculoskeletal: joint pain Skin: no symptoms reported Psychiatric/Neurological: No Symptoms Reported All Other Systems Reviewed Negative Unless Noted: Yes Physical Exam Physical Exam Vital Signs Vital Sign - Last 12Hours 08/31/17 07:03 Temp 97.0 Pulse 95 Resp 16 B/P (MAP) 131/76 Pulse Ox 98 O2 Delivery Room Air Capillary Refill : General Appearance: No Apparent Distress, WD/WN Eyes: Bilateral Eye Normal Inspection, Bilateral Eye PERRL HEENT: PERRL/EOMI, Normal ENT Inspection, Pharynx Normal Neck: Full Range of Motion, Normal Inspection, Non Tender, Supple, Carotid Bruit Respiratory: Chest Non Tender, Lungs Clear, Normal Breath Sounds, No Accessory Muscle Use, No Respiratory Distress Cardiovascular: No Edema, No Gallop, No JVD, No Murmur, Normal Peripheral Pulses, Irregularly Irregular Gastrointestinal: Normal Bowel Sounds, No Organomegaly, No Pulsatile Mass, Non Tender, Soft Back: Normal Inspection, No CVA Tenderness, No Vertebral Tenderness Extremity: Normal Capillary Refill, Normal Inspection, Normal Range of Motion, Non Tender, No Calf Tenderness, No Pedal Edema Neurologic/Psychiatric: Alert, Oriented x3, No Motor/Sensory Deficits, Normal Mood/Affect Skin: Normal Color, Warm/Dry Lymphatic: No Adenopathy Assessment/Plan Admission Diagnosis Assessment: s/p right total knee replacement POD # 0 AF HTN DM Assessment and Plan Plan: Home meds Accuchecks Check labs in am PT/OT Monitor for urinary retention Clinical Quality Measures DVT/VTE Risk/Contraindication: Risk Factor Score Per Nursin RFS Level Per Nursing on Admit: 4+=Very High BRIDGET VASQUEZ DO Aug 31, 2017 13:20
[2017-08-31] MEDS ORDERED: ATEN50TA PO (13:25)
[2017-08-31] MEDS ORDERED: INSU100I23 SC (13:25)
[2017-08-31] MEDS ORDERED: GLIMEPIRIDE 2 MG (AMARYL) TAB PO PRN (14:15)
[2017-08-31] MEDS ORDERED: inSUlin ASPART (NovoLOG) 1 UNIT/0.01 ML (CHARGE PER UNIT) SC PRN (14:15)
[2017-08-31] MEDS: CEFUROXIME INJECTION 750 MG in NS (IVPB) 50 ML IV SCH ×2 (15:09→23:15)
[2017-08-31] MEDS: SENNA W/DOCUSATE (SENOKOT S) TABLET PO SCH ×3 (15:12→21:00)
--- NOTE | 2017-08-31 15:41 | Physical Therapy Evaluation ---
PT Evaluation-General Medical Diagnosis Admission Date Aug 31, 2017 at 06:08 Medical Diagnosis: R TKA Onset Date: Aug 31, 2017 Therapy Diagnosis Therapy Diagnosis: limited ROM and strength R LE Height/Weight Height (Feet): 5 Height (Inches): 10.00 Weight (Pounds): 200 Weight (Ounces): 0.0 Precautions Precautions/Isolations: Standard Precautions Weight Bear Status Right Lower Extremity: Right Weight Bearing/Tolerated Referral Physician: Miguel Angel Small APRN Reason for Referral: Evaluation/Treatment Medical History Pertinent Medical History: Atrial Fib, DM, HTN Reviewed History: Yes Social History Home: Single Level Current Living Status: Spouse Entry Into Home: Stairs Without Railing PT Steps Into Home: 3 Prior/Core FIM Prior Level of Function Functional [place] Measure 0=Not Assessed/NA 4=Minimal Assistance 1=Total Assistance 5=Supervision or Setup 2=Maximal Assistance 6=Modified [place] 3=Moderate Assistance 7=Complete [place] Bed Mobility: 7 Transfers (B,C,W/C) (FIM): 7 Gait: 7 Locomotion: 7 PT Evaluation-Current Subjective Patient is laying in bed upon PT entering the room. He states he still is not feeling any pain, but sensation is intact. He states he knows the protocol for this having had a L TKA earlier this year. Patient is left with CPM on set from -2 to 60 degrees. Pain Numeric Pain Scale: 0-No Pain Location: No Pain Reported Pt/Family Goals Patient wishes to return to normal function in R knee. Objective Patient Orientation: Normal For Age Attachments: IV ROM/Strength ROM Upper Extremities WNL ROM Lower Extremities R LE knee extension/flexion +2-95 degrees L LE WNL Strength Lower Extremities L LE- 5/5 grossly R LE- not tested due to recent surgery Integumentary/Posture Integumentary intact Bowel Incontinence: No Bladder Incontinence: No Neuromuscular (Tone, Coordination, Reflexes) WNL Sensory Vision: Functional Hearing: Functional Hand Dominance: Right Sensation Right Upper Extremit: Intact Sensation Left Upper Extremity: Intact Sensation Right Lower Extremit: Intact Sensation Left Lower Extremity: Intact Transfers Functional [place] Measure 0=Not Assessed/NA 4=Minimal Assistance 1=Total Assistance 5=Supervision or Setup 2=Maximal Assistance 6=Modified [place] 3=Moderate Assistance 7=Complete [place] Transfers (B, C, W/C) (FIM): 5 Scootin Rollin Supine to/from Sit: 5 Sit to/from Stand: 5 Patient was SBA for all observed transfers. Gait Mode of Locomotion: Walk Anticipated Mode of Locomotion: Walk Gait (FIM): 5 Distance: 200' Gait Level of Assist: 5 Gait Persons Needed: 1 Gait Assistive Device: FWW Comments/Gait Description Patient ambulated with normal reciprocal gait pattern in FWW. Balance Sitting Static: Normal Sitting Dynamic: Normal Standing Static: Normal Standing Dynamic: Normal Treatment Patient performed SAQs, heel slides, and straight leg raise exercises with R LE. Assessment/Needs Patient had great tolerance for therapeutic intervention on this date. PT will continue to address ROM and strengthening of R LE per patient tolerance. Rehab Potential: Good PT Short Term Goals Short Term Goals Time Frame: Sep 07, 2017 Transfers (B,C,W/C) (FIM): 6 Gait (FIM): 6 Gait Distance Comment: >300' Gait Level of Assist: 6 Gait Assistive Device: FWW PT Plan Problem List Problem List: Activity Tolerance, Functional Strength, Safety, Balance, Gait, Transfer, ROM Treatment/Plan Treatment Plan: Continue Plan of Care Treatment Plan: Education, Functional Activity [place], Functional Strength, Gait , Safety, Therapeutic Exercise, Transfers Treatment Duration: Sep 07, 2017 Frequency: 11 times per week Estimated Hrs Per Day: .5 hour per day Patient and/or Family Agrees t: Yes Safety Risks/Education Patient Education: Gait Training, Transfer Techniques, Reviewed Precautions, Reviewed Use of Ice, Correct Positioning, Safety Issues Teaching Recipient: Patient Teaching Methods: Demonstration, Discussion Response to Teaching: Verbalize Understanding, Return Demonstration Discharge Recommendations Plan Patient will perform bed mobility and transfer training, balance and endurance training, functional strengthening, stair training, gait training, and education , to improve functional mobility and independence at home. Therapy D/C Recommendations: Home w/ Family Support Equpiment Recommendations-D/C: Front Wheeled Walker Time/GCodes Time In: 1400 Time Out: 1440 Total Billed Treatment Time: 40 Total Billed Treatment 1 EVM 15 min 1 EX 10 min 1 GT 15' TYRONE SCHAEFER PT Aug 31, 2017 15:41
[2017-08-31 16:00] VITALS: BP 123/75
[2017-08-31] MEDS ORDERED: metFORMIN 500 MG (GLUCOPHAGE) TAB PO SCH ×2 (16:00→17:00)
[2017-08-31 17:21] VITALS: BP 123/75
[2017-08-31] MEDS: metFORMIN 500 MG (GLUCOPHAGE) TAB PO SCH (17:40)
[2017-08-31 19:34] VITALS: BP 143/80
[2017-08-31] MEDS: inSUlin DETERMIR 1 UNIT/0.01 ML (LEVEMIR) CHARGE PER UNIT SQ SCH (20:53)
[2017-08-31] MEDS: CALCIUM CARBONATE 500 MG (TUMS) TAB.CHEW PO PRN (21:50)
[2017-09-01] MEDS: oxyCODONE/APAP 5/325MG (PERCOCET 5) TABLET PO PRN ×7 (00:34→23:26)
[2017-09-01 00:45] VITALS: BP 133/80
[2017-09-01] MEDS: NS IV 1000 ML 1,000 ML IV SCH ×2 (02:30→14:45)
[2017-09-01 04:19] VITALS: BP 126/58
[2017-09-01 05:58] LABS: BASOPHILS % (AUTO) 0 % (0-10); EOSINOPHILS # (AUTO) 0.1 10^3/uL (0.0-0.3); EOSINOPHILS % (AUTO) 1 % (0-10); LYMPHOCYTES # (AUTO) 1.1 X 10^3 (1.0-4.0); LYMPHOCYTES % (AUTO) 10 % (12-44); MEAN CORPUSCULAR HEMOGLOBIN 29 PG (25-34); MEAN CORPUSCULAR HGB CONC 33 G/DL (32-36); MEAN CORPUSCULAR VOLUME 87 FL (80-99); MEAN PLATELET VOLUME 10.4 FL (7.4-10.4); MONOCYTES # (AUTO) 1.4 X 10^3 (0.0-1.0); MONOCYTES % (AUTO) 13 % (0-12); NEUTROPHILS # (AUTO) 8.5 X 10^3 (1.8-7.8); NEUTROPHILS % (AUTO) 76 % (42-75); PLATELET COUNT 230 10^3/uL (130-400); RED CELL DISTRIBUTION WIDTH 12.6 % (10.0-14.5); WHITE BLOOD COUNT 11.2 10^3/uL (4.3-11.0)
[2017-09-01] MEDS: MULTIVIT W/MINERALS TAB (THERAGRAN M) PO SCH (06:05)
[2017-09-01] MEDS: metFORMIN 500 MG (GLUCOPHAGE) TAB PO SCH ×3 (06:05→16:51)
[2017-09-01 06:22] LABS: ALANINE AMINOTRANSFERASE 16 U/L (0-55); ALBUMIN 3.6 GM/DL (3.2-4.5); ANION GAP 10 MMOL/L (5-14); ASPARTATE AMINO TRANSFERASE 18 U/L (5-34); BILIRUBIN,TOTAL 0.7 MG/DL (0.1-1.0); BLOOD UREA NITROGEN 18 MG/DL (7-18); BUN/CREATININE RATIO 23; CARBON DIOXIDE 23 MMOL/L (21-32); CHLORIDE 103 MMOL/L (98-107); CREATININE SERUM 0.79 MG/DL (0.60-1.30); GFR ESTIMATED > 60; GLUCOSE 87 MG/DL (70-105); POTASSIUM 4.8 MMOL/L (3.6-5.0); SODIUM 136 MMOL/L (135-145); TOTAL PROTEIN 5.9 GM/DL (6.4-8.2)
--- NOTE | 2017-09-01 07:50 | Progress Note-Standard ---
Standard Progress Note Progress Notes/Assess & Plan Date Seen by Provider: Sep 01, 2017 Time Seen by Provider: 07:49 Progress/Assessment & Plan post op check Patient comfortable radiographs--HW well positioned without fracture RLE--block in effect. brisk cap refill with 1 plus DP pulse s/p rtka mobilize as able when spinal effects absent Final Diagnosis No complaints ambulated in s[place] yesterday Vital Signs Date Time Temp Pulse Resp B/P (MAP) Pulse Ox O2 Delivery O2 Flow Rate FiO2 09/01/17 07:11 96 Room Air 09/01/17 04:19 97.9 107 20 126/58 97 Room Air 09/01/17 02:32 97 Room Air 09/01/17 00:45 98.0 71 18 133/80 96 Room Air 08/31/17 22:29 95 Room Air 08/31/17 20:20 Room Air 08/31/17 19:34 98.0 103 17 143/80 97 Room Air 08/31/17 18:54 99 Room Air 08/31/17 16:00 98.7 85 16 123/75 97 08/31/17 15:59 96 Room Air 08/31/17 12:00 97.0 73 22 126/86 97 08/31/17 11:38 97 Room Air Laboratory Tests Test 08/31/17 20:43 09/01/17 05:45 09/01/17 06:03 Range/Units Glucometer 153 H 86 70-110 MG/DL White Blood Count 11.2 H 4.3-11.0 10^3/uL Red Blood Count 4.30 L 4.35-5.85 10^6/uL Hemoglobin 12.4 L 13.3-17.7 G/DL Hematocrit 37 L 40-54 % Mean Corpuscular Volume 87 80-99 FL Mean Corpuscular Hemoglobin 29 25-34 PG Mean Corpuscular Hemoglobin Concent 33 32-36 G/DL Red Cell Distribution Width 12.6 10.0-14.5 % Platelet Count 230 130-400 10^3/uL Mean Platelet Volume 10.4 7.4-10.4 FL Neutrophils (%) (Auto) 76 H 42-75 % Lymphocytes (%) (Auto) 10 L 12-44 % Monocytes (%) (Auto) 13 H 0-12 % Eosinophils (%) (Auto) 1 0-10 % Basophils (%) (Auto) 0 0-10 % Neutrophils # (Auto) 8.5 H 1.8-7.8 X 10^3 Lymphocytes # (Auto) 1.1 1.0-4.0 X 10^3 Monocytes # (Auto) 1.4 H 0.0-1.0 X 10^3 Eosinophils # (Auto) 0.1 0.0-0.3 10^3/uL Basophils # (Auto) 0.0 0.0-0.1 10^3/uL Sodium Level 136 135-145 MMOL/L Potassium Level 4.8 3.6-5.0 MMOL/L Chloride Level 103 98-107 MMOL/L Carbon Dioxide Level 23 21-32 MMOL/L Anion Gap 10 5-14 MMOL/L Blood Urea Nitrogen 18 7-18 MG/DL Creatinine 0.79 0.60-1.30 MG/DL Estimat Glomerular Filtration Rate > 60 BUN/Creatinine Ratio 23 Glucose Level 87 70-105 MG/DL Calcium Level 9.0 8.5-10.1 MG/DL Total Bilirubin 0.7 0.1-1.0 MG/DL Aspartate Amino Transf (AST/SGOT) 18 5-34 U/L Alanine Aminotransferase (ALT/SGPT) 16 0-55 U/L Alkaline Phosphatase 43 40-136 U/L Total Protein 5.9 L 6.4-8.2 GM/DL Albumin 3.6 3.2-4.5 GM/DL RLE--dressing intact. Intact DF and PF of toes and ankle. 2 plus DP pulse with brisk cap refill. 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
[2017-09-01 08:00] VITALS: BP 154/65
[2017-09-01] MEDS: ENOXAPARIN 30 MG/0.3 ML (LOVENOX) SYR SC SCH ×2 (08:19→19:41)
[2017-09-01] MEDS: ASPIRIN E.C. 81 MG (ECOTRIN) TAB PO SCH (08:20)
[2017-09-01] MEDS: SENNA W/DOCUSATE (SENOKOT S) TABLET PO SCH ×2 (08:20→19:41)
[2017-09-01] MEDS: LINAGLIPTIN (TRADJENTA) 5 MG TABLET PO SCH (08:21)
[2017-09-01] MEDS: ATENOLOL 50 MG (TENORMIN) TAB PO SCH (08:21)
[2017-09-01] MEDS ORDERED: ASPIRIN E.C. 81 MG (ECOTRIN) TAB PO NR (08:30)
--- NOTE | 2017-09-01 09:30 | Physical Therapy Daily Note ---
PT Daily Note-Current Subjective Patient reports significantly more pain this a.m. than he had yesterday. Patient states the pain started to onset late last night. He agrees to PT. Pain Numeric Pain Scale: 8 Location: Right Location Body Site: Knee Pain Description: Ache Appearance Patient appears in good general health. He is left post tx sitting in recliner with call light in reach. Mental Status Patient Orientation: Normal For Age Attachments: IV Transfers Functional [place] Measure 0=Not Assessed/NA 4=Minimal Assistance 1=Total Assistance 5=Supervision or Setup 2=Maximal Assistance 6=Modified [place] 3=Moderate Assistance 7=Complete IndependenceIRFPAI Quality Coding Scale 6 Independent with activity with or without an assistive device 5 Patient requires set up or clean up by helper. Patient completes activity by themselves 4 Supervision or touching assist (CGA). [place] provide cues , steadying assist 3 The helper provides less than half the effort to complete the activity 2 The helper provides more than half the effort to complete the activity 1 Dependent. The helper does all the effort to complete an activity 7 Patient refused to complete or attempt activity 9 The patient did not perform the activity before the current illness or injury 88 Not attempted due to Medical conditions or safety concerns Transfers (B, C, W/C) (FIM): 4 Scootin Rollin Supine to/from Sit: 4 Sit to/from Stand: 5 Patient requires min assist to sit to edge of bed because of pain and soreness in R LE. Patient is SBA for all other transfers. Weight Bearing Right Lower Extremity: Right Weight Bearing/Tolerated Gait Training Gait (FIM): 5 Distance: 200' Gait Level of Assist: 5 Gait Persons Needed: 1 Gait Assistive Device: FWW Patient ambulates with reciprocal gait pattern. Stride is decreased from yesterday, but patient still allows WB through R LE and gait pattern is mostly normal. Exercises Supine Ex: Quad Set, Heel Slides, Short Arc Quads, Straight leg raise Supine Reps: 10 Assessment Current Status: Fair Progress Patient ROM and strength appears to be lower this a.m. mostly due to pain from nerve bloc wearing off. PT still has good tolerance for therapeutic intervention and PT will progress interventions per his tolerance. PT Short Term Goals Short Term Goals Time Frame: Sep 07, 2017 Transfers (B,C,W/C) (FIM): 6 Gait (FIM): 6 Gait Distance Comment: >300' Gait Level of Assist: 6 Gait Assistive Device: FWW PT Plan Problem List Problem List: Activity Tolerance, Functional Strength, Safety, Balance, Gait, ROM Treatment/Plan Treatment Plan: Continue Plan of Care Treatment Plan: Education, Functional Activity Adalgisa, Functional Strength, Gait , Safety, Therapeutic Exercise, Transfers Treatment Duration: Sep 07, 2017 Frequency: 11 times per week Estimated Hrs Per Day: .5 hour per day Patient and/or Family Agrees t: Yes Time/GCodes Time In: 816 Time Out: 841 Total Billed Treatment Time: 25 Total Billed Treatment 1 visit GT 12 min EX 13 min EB ENGLISH PT Sep 01, 2017 09:30
--- NOTE | 2017-09-01 11:24 | Progress Note-Hospitalist ---
Progress Note HPI/CC on Admission CC: Medical management following right total knee replacement POD # 0 HPI: This is a 71yoWM clinic patient of Dr Butt w/h/o DM, AF and HTN who presents to room 420 after an uncomplicated right total knee replacement. Currently he is w/o pain and the spinal block is wearing off and denies any CP or SOB. I am awaiting home med reconciliation in order to restart home meds. Accuchecks will be monitored. Progress Notes/Assess & Plan Date Seen 09/01/17 Time Seen by Provider: 11:00 Admission Dx/Process Assessment: s/p right total knee replacement POD # 0 AF HTN DM Diagonsis/Assessment & Plan Chart Review: No fever Vitals stable Wbc 11.2 Hgb 12.4 CMP normal Blood sugar 86 Patient Interview: Labs were discussed and look good Pt states he had a rough night Pt is able to void. Pt denies having BMs, but is not worried about this. Physical exam stable. 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 Pt states he is not on any blood thinners and this was discussed further. This would be ideal for stroke prevention for the pt. AFVSS, Pleasant, sitting in chair Irr Irr, CTAB No edema Laboratory Tests 09/01/17 05:45 Assessment: s/p right total knee replacement POD # 1 Chronic AF HTN DM Plan: Home meds Accuchecks Check labs in am PT/OT Monitor for urinary retention Needs anticoagulation started by Dr Mars Cardiology as outpt Scribed by Leyla Ya under direct supervision of Dr. Cherelle Vasquez. CHERELLE VASQUEZ DO Sep 01, 2017 11:24
--- NOTE | 2017-09-01 11:40 | Anesthesia-General Post-Op ---
General Patient Condition Mental Status/LOC: Same as Preop Cardiovascular: Satisfactory Nausea/Vomiting: Absent Respiratory: Satisfactory Pain: Controlled Complications: Absent Post Op Complications Complications None Follow Up Care/Instructions Patient Instructions None needed. Anesthesia/Patient Condition Patient Condition Patient is doing well, no complaints, stable vital signs, no apparent adverse anesthesia problems. No complications reported per nursing. ODESSA ALTMAN CRNA Sep 01, 2017 11:40
--- NOTE | 2017-09-01 11:51 | Occ Therapy Progress Note ---
Therapy Progress Note [id number] Pt seen in room, with present. Pt had L TKA earlier this year and reported that he had all the bathroom equipment that he will need for discharge. He and his voiced no concerns about self care now or at discharge. They reported he showered this morning with just a little help and has already been getting up and walking with PT. No skilled OT needs identified. KERI OT, with patient agreement. visit KADE AMATO OT Sep 01, 2017 11:51
[2017-09-01 12:00] VITALS: BP 130/74
[2017-09-01] MEDS: inSUlin ASPART (NovoLOG) 1 UNIT/0.01 ML (CHARGE PER UNIT) SC SCH ×2 (14:25→17:00)
[2017-09-01] MEDS: CALCIUM CARBONATE 500 MG (TUMS) TAB.CHEW PO PRN (14:45)
--- NOTE | 2017-09-01 15:18 | Physical Therapy Daily Note ---
PT Daily Note-Current Subjective Patient states that PT needs to take it easy on him because he is still in a lot of pain today. He reports his pain about the same as this morning. Pain Numeric Pain Scale: 8 Location: Right Location Body Site: Knee Pain Description: Ache Appearance Patient appears in good general health. He is left post tx seated with call light in reach. Mental Status Patient Orientation: Normal For Age Attachments: IV Transfers Functional [place] Measure 0=Not Assessed/NA 4=Minimal Assistance 1=Total Assistance 5=Supervision or Setup 2=Maximal Assistance 6=Modified [place] 3=Moderate Assistance 7=Complete IndependenceIRFPAI Quality Coding Scale 6 Independent with activity with or without an assistive device 5 Patient requires set up or clean up by helper. Patient completes activity by themselves 4 Supervision or touching assist (CGA). [place] provide cues , steadying assist 3 The helper provides less than half the effort to complete the activity 2 The helper provides more than half the effort to complete the activity 1 Dependent. The helper does all the effort to complete an activity 7 Patient refused to complete or attempt activity 9 The patient did not perform the activity before the current illness or injury 88 Not attempted due to Medical conditions or safety concerns Transfers (B, C, W/C) (FIM): 5 Scootin Rollin Supine to/from Sit: 5 Sit to/from Stand: 5 Patient performs all transfers safely with SBA from PT. Weight Bearing Right Lower Extremity: Right Weight Bearing/Tolerated Gait Training Gait (FIM): 5 Distance: 200' Gait Level of Assist: 5 Gait Persons Needed: 1 Gait Assistive Device: FWW Patient ambulates with reciprocal gait pattern with improving stride as he walks. PT is SBA with IV pole. Exercises Supine Ex: Quad Set, Heel Slides, Short Arc Quads, Straight leg raise Supine Reps: 10 R LE performs all exercises Assessment Current Status: Good Progress Patient reports a lot of pain on this date, but gait pattern, ROM, and strength are generally good first day post op TKA. PT will continue strengthening exercises as well as gait to improve function of R LE. PT Short Term Goals Short Term Goals Time Frame: Sep 07, 2017 Transfers (B,C,W/C) (FIM): 6 Gait (FIM): 6 Gait Distance Comment: >300' Gait Level of Assist: 6 Gait Assistive Device: FWW PT Plan Problem List Problem List: Activity Tolerance, Functional Strength, Safety, Balance, Gait, ROM Treatment/Plan Treatment Plan: Continue Plan of Care Treatment Plan: Education, Functional Activity Adalgisa, Functional Strength, Gait , Safety, Therapeutic Exercise, Transfers Treatment Duration: Sep 07, 2017 Frequency: 11 times per week Estimated Hrs Per Day: .5 hour per day Patient and/or Family Agrees t: Yes Time/GCodes Time In: 1411 Time Out: 1434 Total Billed Treatment Time: 23 Total Billed Treatment 1 visit GT 10 min EX 13 min EB ENGLISH PT Sep 01, 2017 15:17
[2017-09-01] MEDS ORDERED: inSUlin ASPART (NovoLOG) 1 UNIT/0.01 ML (CHARGE PER UNIT) SC SCH (16:00)
[2017-09-01 16:13] VITALS: BP 128/67
[2017-09-01 19:28] VITALS: BP 143/68
[2017-09-01] MEDS: morphine PCA 30 MG/30 ML VIAL IV PRN (19:40)
[2017-09-01] MEDS: inSUlin DETERMIR 1 UNIT/0.01 ML (LEVEMIR) CHARGE PER UNIT SQ SCH (20:35)
[2017-09-02] VITALS: BP 148/68
[2017-09-02] MEDS: CALCIUM CARBONATE 500 MG (TUMS) TAB.CHEW PO PRN (02:02)
[2017-09-02] MEDS: NS IV 1000 ML 1,000 ML IV SCH (03:39)
[2017-09-02 04:25] VITALS: BP 118/72
[2017-09-02] MEDS: metFORMIN 500 MG (GLUCOPHAGE) TAB PO SCH ×3 (06:16→17:06)
[2017-09-02] MEDS: MULTIVIT W/MINERALS TAB (THERAGRAN M) PO SCH (06:16)
[2017-09-02] MEDS: inSUlin ASPART (NovoLOG) 1 UNIT/0.01 ML (CHARGE PER UNIT) SC SCH ×3 (06:17→17:00)
[2017-09-02] MEDS ORDERED: morphine INJ 4 MG/ML 1 ML (VIAL/SYRINGE) IVP PRN (07:00)
--- NOTE | 2017-09-02 07:04 | Progress Note-Standard ---
Standard Progress Note Progress Notes/Assess & Plan Date Seen by Provider: Sep 02, 2017 Time Seen by Provider: 07:02 Progress/Assessment & Plan post op check Patient comfortable radiographs--HW well positioned without fracture RLE--block in effect. brisk cap refill with 1 plus DP pulse s/p rtka mobilize as able when spinal effects absent Final Diagnosis No complaints No BM Vital Signs Date Time Temp Pulse Resp B/P (MAP) Pulse Ox O2 Delivery O2 Flow Rate FiO2 09/02/17 04:25 97.6 129 18 118/72 (87) 97 Room Air 09/02/17 00:00 98.2 115 18 148/68 (94) 98 Room Air 09/01/17 21:00 Room Air 09/01/17 19:40 20 09/01/17 19:28 97.7 127 20 143/68 (93) 97 Room Air 09/01/17 16:13 97.1 122 20 128/67 (87) 97 Room Air 09/01/17 12:00 98.3 109 20 130/74 98 Room Air 09/01/17 09:00 Room Air 09/01/17 08:00 96.7 106 20 154/65 97 Room Air 09/01/17 07:11 96 Room Air Laboratory Tests Test 09/01/17 11:11 09/01/17 14:21 09/01/17 16:34 09/01/17 17:45 Range/Units Glucometer 203 H 185 H 226 H 216 H 70-110 MG/DL Test 09/01/17 20:31 09/02/17 06:16 Range/Units Glucometer 215 H 183 H 70-110 MG/DL RLE--incision clean and dry. Fracture blisters medially. SLR with min assistance NVI distally. No calf tenderness. Neg Corinna's s/p RTKA doing well dc MSWS heplock continue PT/OT MOM likely DC tomorrow ONEIDA CASEY MD Sep 02, 2017 07:04
[2017-09-02 07:14] LABS: BASOPHILS % (AUTO) 0 % (0-10); EOSINOPHILS # (AUTO) 0.1 10^3/uL (0.0-0.3); EOSINOPHILS % (AUTO) 1 % (0-10); LYMPHOCYTES # (AUTO) 0.9 X 10^3 (1.0-4.0); LYMPHOCYTES % (AUTO) 7 % (12-44); MEAN CORPUSCULAR HEMOGLOBIN 29 PG (25-34); MEAN CORPUSCULAR HGB CONC 33 G/DL (32-36); MEAN CORPUSCULAR VOLUME 87 FL (80-99); MEAN PLATELET VOLUME 10.5 FL (7.4-10.4); MONOCYTES # (AUTO) 1.6 X 10^3 (0.0-1.0); MONOCYTES % (AUTO) 13 % (0-12); NEUTROPHILS # (AUTO) 10.1 X 10^3 (1.8-7.8); NEUTROPHILS % (AUTO) 80 % (42-75); PLATELET COUNT 216 10^3/uL (130-400); RED CELL DISTRIBUTION WIDTH 12.6 % (10.0-14.5); WHITE BLOOD COUNT 12.7 10^3/uL (4.3-11.0)
[2017-09-02] MEDS ORDERED: MILK OF MAGNESIA 400 MG/5 ML 30 ML UDC PO NR (07:25)
[2017-09-02 07:35] LABS: ALANINE AMINOTRANSFERASE 14 U/L (0-55); ALBUMIN 3.7 GM/DL (3.2-4.5); ANION GAP 6 MMOL/L (5-14); ASPARTATE AMINO TRANSFERASE 20 U/L (5-34); BILIRUBIN,TOTAL 0.7 MG/DL (0.1-1.0); BLOOD UREA NITROGEN 10 MG/DL (7-18); BUN/CREATININE RATIO 14; CALCIUM 10.1 MG/DL (8.5-10.1); CARBON DIOXIDE 29 MMOL/L (21-32); CHLORIDE 98 MMOL/L (98-107); CREATININE SERUM 0.74 MG/DL (0.60-1.30); GFR ESTIMATED > 60; GLUCOSE 171 MG/DL (70-105); POTASSIUM 4.4 MMOL/L (3.6-5.0); SODIUM 133 MMOL/L (135-145); TOTAL PROTEIN 6.5 GM/DL (6.4-8.2)
[2017-09-02 07:43] LABS: BAND NEUTROPHILS 0 %; LYMPHOCYTES % (MANUAL) 6 %; NEUTROPHILS % (MANUAL) 83 %
[2017-09-02 07:44] LABS: BASOPHILS % (MANUAL) 0 %; EOSINOPHILS % (MANUAL) 1 %
--- NOTE | 2017-09-02 07:50 | DISCHARGE SUMMARY ---
DATE OF SERVICE: DIAGNOSES: 1. Right knee primary osteoarthritis. 2. Diabetes mellitus. PROCEDURES: Right total knee arthroplasty. SUMMARY: The patient is a 71-year-old gentleman who was admitted the day of a right total knee arthroplasty, which he underwent without complications. Postoperatively, he did very well. At the time of discharge, his wound was clean and dry. He had attained independent status with physical therapy. He had good quad control. He was tolerating his diet well and tolerating pain with oral pain medication. CONDITION AT DISCHARGE: Good. DISCHARGE DIET: Diabetic. FOLLOWUP: Is in three weeks. Home physical therapy has been arranged. DISCHARGE MEDICATIONS: Home medications, aspirin and Percocet. ACTIVITIES: Weightbearing as tolerated with assistive devices. Job ID: [id number] DocumentID: [id number] Dictated Date: 09/02/2017 07:02:37 Station Cook Date: 09/02/2017 07:49:40 Dictated By: ONEIDA CASEY MD
[2017-09-02 08:00] VITALS: BP 159/77
[2017-09-02] MEDS: oxyCODONE/APAP 5/325MG (PERCOCET 5) TABLET PO PRN ×4 (09:00→20:56)
--- NOTE | 2017-09-02 10:01 | Physical Therapy Daily Note ---
PT Daily Note-Current Subjective Patient is sitting edge of bed when PT enters the room. Patient has open blisters around the R knee. Patient states he is feeling about the same as yesterday. Pain Numeric Pain Scale: 8 Location: Right Location Body Site: Knee Pain Description: Ache Appearance Patient appears in good health. He is left post tx seated edge of bed with call light in reach. Mental Status Patient Orientation: Normal For Age Patient unattached IV upon PT entering the room. He states doctor said it was coming off anyway. Transfers Functional [place] Measure 0=Not Assessed/NA 4=Minimal Assistance 1=Total Assistance 5=Supervision or Setup 2=Maximal Assistance 6=Modified [place] 3=Moderate Assistance 7=Complete IndependenceIRFPAI Quality Coding Scale 6 Independent with activity with or without an assistive device 5 Patient requires set up or clean up by helper. Patient completes activity by themselves 4 Supervision or touching assist (CGA). [place] provide cues , steadying assist 3 The helper provides less than half the effort to complete the activity 2 The helper provides more than half the effort to complete the activity 1 Dependent. The helper does all the effort to complete an activity 7 Patient refused to complete or attempt activity 9 The patient did not perform the activity before the current illness or injury 88 Not attempted due to Medical conditions or safety concerns Transfers (B, C, W/C) (FIM): 6 Sit to/from Stand: 6 Sit to stand is only transfer observed. Patient performs safely as PT enters the room. Weight Bearing Right Lower Extremity: Right Weight Bearing/Tolerated Gait Training Gait (FIM): 6 Distance: 300' Gait Level of Assist: 6 Gait Assistive Device: FWW Patient ambulates safely with reciprocal gait pattern. Treatments Education with patient on importance of performing exercises and working through the pain. Patient self limits due to pain. Assessment Current Status: Good Progress Patient is still in pain s/p R TKA. Patient was educated on pain management and gait. PT will continue to perform therapeutic exercise and gait training. PT Short Term Goals Short Term Goals Time Frame: Sep 07, 2017 Transfers (B,C,W/C) (FIM): 6 Gait (FIM): 6 Gait Distance Comment: >300' Gait Level of Assist: 6 Gait Assistive Device: FWW PT Plan Problem List Problem List: Activity Tolerance, Functional Strength, Safety, Balance, Gait, ROM Treatment/Plan Treatment Plan: Continue Plan of Care Treatment Plan: Education, Functional Activity [place], Functional Strength, Gait , Safety, Therapeutic Exercise, Transfers Treatment Duration: Sep 07, 2017 Frequency: 11 times per week Estimated Hrs Per Day: .5 hour per day Patient and/or Family Agrees t: Yes Time/GCodes Time In: 815 Time Out: 844 Total Billed Treatment Time: 29 Total Billed Treatment 1 visit GT 18 min EDUC 11 min EB ENGLISH PT Sep 02, 2017 10:01
[2017-09-02] MEDS: ATENOLOL 50 MG (TENORMIN) TAB PO SCH (10:21)
[2017-09-02] MEDS: ASPIRIN E.C. 81 MG (ECOTRIN) TAB PO SCH (10:22)
[2017-09-02] MEDS: SENNA W/DOCUSATE (SENOKOT S) TABLET PO SCH ×2 (10:22→20:10)
[2017-09-02] MEDS: LINAGLIPTIN (TRADJENTA) 5 MG TABLET PO SCH (10:22)
[2017-09-02] MEDS: ENOXAPARIN 30 MG/0.3 ML (LOVENOX) SYR SC SCH ×2 (10:24→20:10)
--- NOTE | 2017-09-02 11:38 | Progress Note-Hospitalist ---
Progress Note HPI/CC on Admission CC: Medical management following right total knee replacement POD # 0 HPI: This is a 71yoWM clinic patient of Dr Butt w/h/o DM, AF and HTN who presents to room 420 after an uncomplicated right total knee replacement. Currently he is w/o pain and the spinal block is wearing off and denies any CP or SOB. I am awaiting home med reconciliation in order to restart home meds. Accuchecks will be monitored. Progress Notes/Assess & Plan Date Seen 09/02/17 Time Seen by Provider: 11:00 Admission Dx/Process Assessment: s/p right total knee replacement POD # 0 AF HTN DM Diagonsis/Assessment & Plan Chart Review: No fever Vitals stable WBC 12.7 Hgb 11.8 SW Review: Pt has everything and is okay to DC tomorrow Patient Interview: Pt states things are going well Pt denies having BMs even on his bowel regimen. Pt further discussed his regular routine Physical exam stable Pt states he is able to void well. AFVSS, Pleasant, walking with walker Irr Irr, CTAB No edema Assessment: s/p right total knee replacement POD # 2 Chronic AF HTN DM post op constipation Mild hyponatremia Plan: Home meds Accuchecks PT/OT Needs anticoagulation started by Dr Mars Cardiology as out-pt Suppository, Fleets prn Scribed by Leyla Ya under direct supervision of Dr. Cherelle Vasquez. CHERELLE VASQUEZ DO Sep 02, 2017 11:38
[2017-09-02 12:00] VITALS: BP 136/65
[2017-09-02] MEDS ORDERED: FLEET ENEMA ADULT 1 EA BTL PR NR (12:30)
[2017-09-02] MEDS ORDERED: BISACODYL 10 MG SUPP (DULCOLAX) PR NR (12:30)
--- NOTE | 2017-09-02 13:56 | Physical Therapy Daily Note ---
PT Daily Note-Current Subjective Patient states he is still in quite a bit of pain and that PT needs to take it easy on him this p.m. He is seated at edge of bed upon PT entering and agrees to PT. Pain Numeric Pain Scale: 8 Location: Right Location Body Site: Knee Pain Description: Ache Appearance Patient appears healthy. He is left post tx seated edge of bed. Call light is in reach. Mental Status Patient Orientation: Normal For Age Transfers Functional [place] Measure 0=Not Assessed/NA 4=Minimal Assistance 1=Total Assistance 5=Supervision or Setup 2=Maximal Assistance 6=Modified [place] 3=Moderate Assistance 7=Complete IndependenceIRFPAI Quality Coding Scale 6 Independent with activity with or without an assistive device 5 Patient requires set up or clean up by helper. Patient completes activity by themselves 4 Supervision or touching assist (CGA). [place] provide cues , steadying assist 3 The helper provides less than half the effort to complete the activity 2 The helper provides more than half the effort to complete the activity 1 Dependent. The helper does all the effort to complete an activity 7 Patient refused to complete or attempt activity 9 The patient did not perform the activity before the current illness or injury 88 Not attempted due to Medical conditions or safety concerns Transfers (B, C, W/C) (FIM): 5 Scootin Rollin Supine to/from Sit: 5 Sit to/from Stand: 5 Patient can perform all observed transfers with SBA. Weight Bearing Right Lower Extremity: Right Weight Bearing/Tolerated Gait Training Gait (FIM): 6 Distance: 300' Gait Level of Assist: 6 Gait Assistive Device: FWW Patient walks safely with FWW. He advances with normal stride and regular gait. Exercises Supine Ex: Quad Set, Heel Slides, Short Arc Quads, Straight leg raise Supine Reps: 10 Assessment Current Status: Good Progress Patient is still in some pain post R TKA. He has good tolerance for therapeutic exercise and he reports improved pain with walking. PT will continue exercise and gait per his tolerance. PT Short Term Goals Short Term Goals Time Frame: Sep 07, 2017 Transfers (B,C,W/C) (FIM): 6 Gait (FIM): 6 Gait Distance Comment: >300' Gait Level of Assist: 6 Gait Assistive Device: FWW PT Plan Problem List Problem List: Activity Tolerance, Functional Strength, Safety, Balance, Gait Treatment/Plan Treatment Plan: Continue Plan of Care Treatment Plan: Education, Functional Activity [place], Functional Strength, Gait , Safety, Therapeutic Exercise, Transfers Treatment Duration: Sep 07, 2017 Frequency: 11 times per week Estimated Hrs Per Day: .5 hour per day Patient and/or Family Agrees t: Yes Time/GCodes Time In: 1300 Time Out: 1323 Total Billed Treatment Time: 23 Total Billed Treatment 1 visit GT 10 min EX 13 min EB ENGLISH PT Sep 02, 2017 13:55
[2017-09-02 15:38] VITALS: BP 147/72
[2017-09-02 20:05] VITALS: BP 131/75
[2017-09-02] MEDS: inSUlin DETERMIR 1 UNIT/0.01 ML (LEVEMIR) CHARGE PER UNIT SQ SCH (20:56)
[2017-09-03] VITALS: BP 129/69
[2017-09-03] MEDS: oxyCODONE/APAP 5/325MG (PERCOCET 5) TABLET PO PRN ×3 (00:06→09:57)
[2017-09-03 04:11] VITALS: BP 131/81
[2017-09-03] MEDS: inSUlin ASPART (NovoLOG) 1 UNIT/0.01 ML (CHARGE PER UNIT) SC SCH ×2 (05:55→11:16)
[2017-09-03] MEDS: MULTIVIT W/MINERALS TAB (THERAGRAN M) PO SCH (06:22)
[2017-09-03] MEDS: metFORMIN 500 MG (GLUCOPHAGE) TAB PO SCH ×2 (06:22→11:43)
[2017-09-03 06:52] LABS: BASOPHILS % (AUTO) 0 % (0-10); EOSINOPHILS # (AUTO) 0.2 10^3/uL (0.0-0.3); EOSINOPHILS % (AUTO) 1 % (0-10); LYMPHOCYTES # (AUTO) 0.9 X 10^3 (1.0-4.0); LYMPHOCYTES % (AUTO) 7 % (12-44); MEAN CORPUSCULAR HEMOGLOBIN 29 PG (25-34); MEAN CORPUSCULAR HGB CONC 33 G/DL (32-36); MEAN CORPUSCULAR VOLUME 86 FL (80-99); MEAN PLATELET VOLUME 10.5 FL (7.4-10.4); MONOCYTES % (AUTO) 8 % (0-12); NEUTROPHILS # (AUTO) 10.1 X 10^3 (1.8-7.8); NEUTROPHILS % (AUTO) 83 % (42-75); PLATELET COUNT 226 10^3/uL (130-400); RED BLOOD COUNT 3.93 10^6/uL (4.35-5.85); RED CELL DISTRIBUTION WIDTH 12.4 % (10.0-14.5); WHITE BLOOD COUNT 12.1 10^3/uL (4.3-11.0)
[2017-09-03 07:13] LABS: ALANINE AMINOTRANSFERASE 17 U/L (0-55); ALBUMIN 3.7 GM/DL (3.2-4.5); ANION GAP 12 MMOL/L (5-14); ASPARTATE AMINO TRANSFERASE 25 U/L (5-34); BILIRUBIN,TOTAL 0.5 MG/DL (0.1-1.0); BLOOD UREA NITROGEN 10 MG/DL (7-18); BUN/CREATININE RATIO 13; CALCIUM 9.8 MG/DL (8.5-10.1); CARBON DIOXIDE 24 MMOL/L (21-32); CHLORIDE 99 MMOL/L (98-107); CREATININE SERUM 0.75 MG/DL (0.60-1.30); GFR ESTIMATED > 60; GLUCOSE 83 MG/DL (70-105); POTASSIUM 3.8 MMOL/L (3.6-5.0); SODIUM 135 MMOL/L (135-145); TOTAL PROTEIN 6.8 GM/DL (6.4-8.2)
[2017-09-03 08:00] VITALS: BP 148/73
[2017-09-03] MEDS: ENOXAPARIN 30 MG/0.3 ML (LOVENOX) SYR SC SCH (08:59)
[2017-09-03] MEDS: LINAGLIPTIN (TRADJENTA) 5 MG TABLET PO SCH (09:00)
[2017-09-03] MEDS: ASPIRIN E.C. 81 MG (ECOTRIN) TAB PO SCH (09:00)
[2017-09-03] MEDS: SENNA W/DOCUSATE (SENOKOT S) TABLET PO SCH (09:00)
[2017-09-03] MEDS: ATENOLOL 50 MG (TENORMIN) TAB PO SCH (09:00)
--- NOTE | 2017-09-03 10:07 | Physical Therapy Daily Note ---
PT Daily Note-Current Subjective Pain rated 5-6/10 in R knee. Pt agreeable and ready for discharge to home. Reviewed all HEP and use of CPM and cryotherapy. Reviewed proper way to ascend/ descend steps. Pt and agreeable and verbalize understanding. Mental Status Patient Orientation: Person, Place, Situation Transfers Functional [place] Measure 0=Not Assessed/NA 4=Minimal Assistance 1=Total Assistance 5=Supervision or Setup 2=Maximal Assistance 6=Modified [place] 3=Moderate Assistance 7=Complete IndependenceIRFPAI Quality Coding Scale 6 Independent with activity with or without an assistive device 5 Patient requires set up or clean up by helper. Patient completes activity by themselves 4 Supervision or touching assist (CGA). [place] provide cues , steadying assist 3 The helper provides less than half the effort to complete the activity 2 The helper provides more than half the effort to complete the activity 1 Dependent. The helper does all the effort to complete an activity 7 Patient refused to complete or attempt activity 9 The patient did not perform the activity before the current illness or injury 88 Not attempted due to Medical conditions or safety concerns Mod I with transfers all levels Weight Bearing Right Lower Extremity: Right Weight Bearing/Tolerated Gait Training Gait Assistive Device: FWW Pt amb 200ft with SBA, FWW, near normal gait by good heel strike and good swing through Exercises Supine Ex: LE Protocol Supine Reps: 10 Treatments Pt requires mod A for SLR. Pt uses hook technique to transfer in/out bed. Pt presents with safe and mod (I) functional mobility. Assessment Current Status: Good Progress [place] well. Pt presents with good understanding of HEP and proper technique for stairs and FWW. Pt approximately 5 - 70deg AROM (R) knee. Pt progressing appropriately and ready for discharge to home. Pt in bed with CPM set -5 - 50deg with cryotherapy in place. All needs met. Pt issued copy of HEP. Home care to follow up next week. PT Short Term Goals Short Term Goals Time Frame: Sep 07, 2017 Transfers (B,C,W/C) (FIM): 6 Gait (FIM): 6 Gait Distance Comment: >300' Gait Level of Assist: 6 Gait Assistive Device: FWW PT Plan Treatment/Plan Treatment Plan: Discontinue PT, goals met Treatment Plan: Education, Functional Activity [place], Functional Strength, Gait , Safety, Therapeutic Exercise, Transfers Treatment Duration: Sep 07, 2017 Frequency: 11 times per week Estimated Hrs Per Day: .5 hour per day Patient and/or Family Agrees t: Yes Time/GCodes Time In: 815 Time Out: 845 Total Billed Treatment Time: 30 Total Billed Treatment 1, ther ex 15min, gait 10min, CPM 5min АЛЕКСАНДР GARCIA CPTA Sep 03, 2017 10:07
[2017-09-03 12:00] VITALS: BP 135/68
--- NOTE | 2017-09-03 12:07 | Progress Note-Standard ---
Standard Progress Note Progress Notes/Assess & Plan Date Seen by Provider: Sep 03, 2017 Time Seen by Provider: 11:55 Progress/Assessment & Plan POD3 Patient verbalizes no c/o and states he is ready to go home today. Right knee dressing clean and dry and changed 0700 today. Surrounding tissue free of warmth erythema or drainage. Moderate swelling noted. PROM right knee 0. Bilateral calves soft/nontender and negative Corinna's signs. Intact DF, PF and EHL. Vital Signs Date Time Temp Pulse Resp B/P (MAP) Pulse Ox O2 Delivery O2 Flow Rate FiO2 09/03/17 08:00 98.0 115 24 148/73 (98) Room Air 09/03/17 04:11 98.4 105 20 131/81 (98) Room Air 09/03/17 00:00 98.2 100 14 129/69 (89) 97 Room Air 09/02/17 20:05 98.9 99 20 131/75 (93) 98 Room Air 09/02/17 15:38 99.0 116 20 147/72 (97) 98 Room Air VSS and Tmax 98.9 Assessment: Doing well S/P Right TKA Plan: Home today DVT prophylaxis Home CPM PT SHOAIB BETH Sep 03, 2017 12:07
[2017-09-03 13:30] VITALS: BP 135/68
== END 2017-09-03 13:30 | disposition home or self-care (01) | DRG 470 ==
LOC: 4TH 06:08 → SURG 06:09 → 4TH 10:30
PROVIDERS: ADMIT Orthopaedic Surgery; ATTEND Orthopaedic Surgery
PROC: 0SRC0J9 Replacement of Right Knee Joint with Synthetic Substitute, Cemented, Open Approach (ICD-10-PCS; principal; 2017-08-31 07:30)
DX: M17.11 Unilateral primary osteoarthritis, right knee (principal); E11.9 Type 2 diabetes mellitus without complications; Z79.84 Long term (current) use of oral hypoglycemic drugs; G30.9 Alzheimer's disease, unspecified; F02.80 Dementia in other diseases classified elsewhere, unspecified severity, without behavioral disturbance, psychotic disturbance, mood disturbance, and anxiety; I48.91 Unspecified atrial fibrillation; I10 Essential (primary) hypertension
CPT/HCPCS: 36415; 73560; 80053; 82962; 85007; 85025; 85027; 94664; 94760

== ENCOUNTER → 2021-05-16 | Outpatient (CLI) | payer MEDICARE, OTHER ==
[~2021-05-16] MED LIST changes: +INSU100I23 SC; +METF-397 PO; -METF500T4 PO; -OXYC-197 PO; +OXYC1TAB11 PO; +OXYC1TAB87 PO
[2021-05-16 12:04] LABS: SODIUM 138 MMOL/L (135-145)
[2021-05-16 12:07] LABS: CARBON DIOXIDE 21 MMOL/L (21-32)
== END ==
LOC: GIR 11:45
PROVIDERS: ATTEND Family Medicine
DX: Z53.9 Procedure and treatment not carried out, unspecified reason (principal)
CPT/HCPCS: 82374; 84295

== ENCOUNTER → 2022-08-11 | Outpatient (CLI) | payer MEDICARE, OTHER ==
--- NOTE | 2022-08-11 11:50 | Diagnostic Imaging Report ---
Clinical Indication: Patient is having memory loss. Exam: MRI of the brain performed without IV contrast. Sequences include axial DWI, ADC map, axial gradient echo, axial FLAIR, axial T1, axial T2, and sagittal T1. Comparison: None. Findings: There is no evidence of acute cerebral infarct, intracranial hemorrhage, or gross mass effect. The brain parenchymal volume appears appropriate for patient's age. There are multiple focal and mildly confluent areas of high T2 signal white matter changes involving both cerebral hemispheres and periventricular regions, likely representing chronic small vessel ischemic disease and leukoaraiosis. There is normal drake-white matter distinction. There is no significant midline shift or herniation. There is no evidence of hydrocephalus. The basal cisterns are unremarkable. The skull, extracranial soft tissue, and orbits are unremarkable. The paranasal sinuses are unremarkable. Temporal bones show no significant abnormality. IMPRESSION: 1: There is no evidence of acute intracranial process. 2: There is chronic small vessel ischemic disease and leukoaraiosis. Dictated by: Dictated on workstation # [id number]
== END ==
LOC: RAD 08:27
PROVIDERS: ATTEND Psychiatry & Neurology Neurology
DX: I67.81 Acute cerebrovascular insufficiency (principal); I67.82 Cerebral ischemia
CPT/HCPCS: 70551